=== PATIENT | female | born 1960 | race African-American/Black ===

== ENCOUNTER → 2018-01-20 | Day surgery (SDC) | payer MEDICARE, OTHER ==
[~2018-01-20] MED LIST: IV RINGERS,LACTATED 1000ML 1,000 ML IV; LIDOCAINE 1% PF 2 ML VIAL. ID; LIDOCAINE 2% PF Vial for OR 5 ML VIAL.; MIDAZOLAM HCL/PF 2 MG/2 ML VIAL. IV; PROPOFOL 40 ML IV; fentaNYL PF VIAL 100 MCG/2 ML VIAL IV
[2018-01-20] MEDS: IV NORMAL SALINE 1000ML BAG 1,000 ML IV (14:06)
== END | disposition home or self-care (01) ==
LOC: ENDOS 13:11
DX: Z12.11 Encounter for screening for malignant neoplasm of colon (principal); K64.0 First degree hemorrhoids; D12.8 Benign neoplasm of rectum; Z91.040 Latex allergy status; Z86.73 Personal history of transient ischemic attack (TIA), and cerebral infarction without residual deficits; E78.00 Pure hypercholesterolemia, unspecified; I11.0 Hypertensive heart disease with heart failure; I50.9 Heart failure, unspecified; G47.30 Sleep apnea, unspecified; E66.9 Obesity, unspecified; M17.12 Unilateral primary osteoarthritis, left knee; Z98.890 Other specified postprocedural states; E03.9 Hypothyroidism, unspecified; Z87.891 Personal history of nicotine dependence; Z88.8 Allergy status to other drugs, medicaments and biological substances
CPT/HCPCS: 45380; 45385; 88305; J2704

== ENCOUNTER 2019-09-23 17:10 | Inpatient (IN) | payer MEDICARE, OTHER ==
[~2019-09-23] VITALS: Ht 160 cm; Wt 124.8 kg
[~2019-09-23 17:10] MED LIST changes: +AMLO10TA8 PO; +ASPI325T8 PO; +CARV12.5 PO; +CARV25TA PO; +CINA30TA2 PO; +DARB100D SQ; +DOXA2TAB2 PO; +FOLI0.8T3 PO; +FURO-68 PO; +HYDR-2678 PO; +HYDR-2868 PO; +HYDR-2869 PO; -IV RINGERS,LACTATED 1000ML 1,000 ML IV; -LIDOCAINE 1% PF 2 ML VIAL. ID; -LIDOCAINE 2% PF Vial for OR 5 ML VIAL.; +LOSA-73 PO; +LOSA100T2 PO; -MIDAZOLAM HCL/PF 2 MG/2 ML VIAL. IV; -PROPOFOL 40 ML IV; -fentaNYL PF VIAL 100 MCG/2 ML VIAL IV
[2019-09-23] MEDS ORDERED: hydrALAZINE 20 MG/ML VIAL. IVP ONE ×2 (18:00→19:15)
--- NOTE | 2019-09-23 18:04 | PHYS DOC ---
Past Medical History Past Medical History: Hypertension, Renal Disease, Renal Failure, Stroke Additional Past Medical Histor: stroke 2012, 2019 Past Surgical History: No Surgical History Alcohol Use: Occasionally Drug Use: None Adult General Chief Complaint Chief Complaint: DIALYSIS PROBLEM HPI HPI Patient is a 59 year old [female] who presents with [fatigue, malaise. Patient reports she has not been to dialysis approximately 1.5 weeks, missing 5 treatments at this time. States that she just did not have the energy to go. States she know she needs to her dialysis, however she just could not. Reports she has felt some fatigue, aching since that time. Does report she is still producing urine, also reports she no she has high blood pressure, does take hydralazine he stay for blood pressure. However has not taken any doses this evening. Denies dizziness. Denies nausea, vomiting, diarrhea. Denies abdominal pain. States she feels fine, not having any discomfort, but does continue to feel malaise ] Review of Systems Review of Systems Constitutional: Denies fever or chills reports generalized malaise [] Eyes: Denies change in visual acuity, redness, or eye pain [] HENT: Denies nasal congestion or sore throat [] Respiratory: Denies cough or shortness of breath [] Cardiovascular: No additional information not addressed in HPI [] GI: Denies abdominal pain, nausea, vomiting, bloody stools or diarrhea [] : Denies dysuria or hematuria reports she still produces urine, although a small amount[] Musculoskeletal: Denies back pain or joint pain [] Integument: Denies rash or skin lesions [] Neurologic: Denies headache, focal weakness or sensory changes [] Endocrine: Denies polyuria or polydipsia [] All other systems were reviewed and found to be within normal limits, except as documented in this note. Current Medications Current Medications Current Medications Medications (Trade) Dose Ordered Sig/Marco A Start Time Stop Time Status Last Admin Dose Admin Amlodipine Besylate (Norvasc) 10 mg DAILY 09/23/19 19:15 UNV Hydralazine HCl (Apresoline Inj) 10 mg 1X ONCE 09/23/19 18:00 09/23/19 18:06 DC 09/23/19 18:17 10 MG Hydralazine HCl (Apresoline) 50 mg TID 09/23/19 21:00 UNV Non-Formulary Medication (Carvedilol (Coreg)) 1 tab BID 09/23/19 21:00 UNV Non-Formulary Medication (Doxazosin Mesylate ) 1 tab DAILY 09/24/19 09:00 UNV Sodium Polystyrene Sulfonate (Kayexalate) 15 gm 1X ONCE 09/23/19 19:00 09/23/19 19:01 DC 09/23/19 19:05 15 GM Allergies Allergies Allergies Coded Allergies Type Severity Reaction Last Updated Verified latex Allergy Severe Rash 01/20/18 Yes iodine Adverse Reaction Intermediate 01/20/18 Yes Physical Exam Physical Exam Constitutional: Well developed, well nourished, no acute distress, non-toxic appearance. Grossly obese [] HENT: Normocephalic, atraumatic, bilateral external ears normal, oropharynx [address], no oral exudates, nose normal. [] Eyes: PERRLA, EOMI, conjunctiva normal, no discharge. [] Neck: Normal range of motion, no tenderness, supple, no stridor. [] Cardiovascular:Heart rate regular rhythm, no murmur [] Lungs & Thorax: Bilateral breath sounds clear to auscultation [] Abdomen: Bowel sounds normal, soft, no tenderness, no masses, no pulsatile masses. [] Skin: Warm, dry, no erythema, no rash. [] Back: No tenderness, no CVA tenderness. [] Extremities: No tenderness, no cyanosis, no clubbing, ROM intact, no edema. [] Neurologic: Alert and oriented X 3, normal motor function, normal sensory function, no focal deficits noted. [] Psychologic: Affect normal, judgement normal, mood normal. [] Current Patient Data Vital Signs Vital Signs Date Time Temp Pulse Resp B/P (MAP) Pulse Ox O2 Delivery O2 Flow Rate FiO2 09/23/19 18:54 73 18 185/79 (114) 95 Room Air 09/23/19 17:39 97.6 97.6 Lab Values Laboratory Tests Test 09/23/19 17:50 White Blood Count 4.3 x10^3/uL (4.0-11.0) Red Blood Count 2.78 x10^6/uL (3.50-5.40) L Hemoglobin 9.1 g/dL (12.0-15.5) L Hematocrit 27.5 % (36.0-47.0) L Mean Corpuscular Volume 99 fL (79-100) Mean Corpuscular Hemoglobin 33 pg (25-35) Mean Corpuscular Hemoglobin Concent 33 g/dL (31-37) Red Cell Distribution Width 17.8 % (11.5-14.5) H Platelet Count 161 x10^3/uL (140-400) Neutrophils (%) (Auto) 83 % (31-73) H Lymphocytes (%) (Auto) 11 % (24-48) L Monocytes (%) (Auto) 4 % (0-9) Eosinophils (%) (Auto) 1 % (0-3) Basophils (%) (Auto) 1 % (0-3) Neutrophils # (Auto) 3.6 x10^3/uL (1.8-7.7) Lymphocytes # (Auto) 0.5 x10^3/uL (1.0-4.8) L Monocytes # (Auto) 0.2 x10^3/uL (0.0-1.1) Eosinophils # (Auto) 0.0 x10^3/uL (0.0-0.7) Basophils # (Auto) 0.0 x10^3/uL (0.0-0.2) Sodium Level 143 mmol/L (136-145) Potassium Level 5.8 mmol/L (3.5-5.1) H Chloride Level 108 mmol/L (98-107) H Carbon Dioxide Level 21 mmol/L (21-32) Anion Gap 14 (6-14) Blood Urea Nitrogen 103 mg/dL (7-20) H Creatinine 14.6 mg/dL (0.6-1.0) H Estimated GFR (Cockcroft-Gault) 3.1 BUN/Creatinine Ratio 7 (6-20) Glucose Level 92 mg/dL (70-99) Calcium Level 9.2 mg/dL (8.5-10.1) Magnesium Level 2.0 mg/dL (1.8-2.4) Total Bilirubin 0.4 mg/dL (0.2-1.0) Aspartate Amino Transferase (AST) 13 U/L (15-37) L Alanine Aminotransferase (ALT) 15 U/L (14-59) Alkaline Phosphatase 73 U/L (46-116) Troponin I Quantitative < 0.017 ng/mL (0.000-0.055) Total Protein 7.4 g/dL (6.4-8.2) Albumin 3.1 g/dL (3.4-5.0) L Albumin/Globulin Ratio 0.7 (1.0-1.7) L Laboratory Tests 09/23/19 17:50 Laboratory Tests 09/23/19 17:50 EKG EKG ![id number] changes. Sinus rhythm. occasional PVC[] Radiology/Procedures Radiology/Procedures [] Course & Med Decision Making Course & Med Decision Making Pertinent Labs and Imaging studies reviewed. (See chart for details) []@[address] Dickerson, Nephrology, recommends kayexalate and patient to be dialyzed tomorrow. Recommends admission. @184 - Repeat blood pressure following hydralazine Patient continues resting in room at this time. @[address] Parry.agrees to admission. Will continue Hydralazine for blood pressure. Dragon Disclaimer Dragon Disclaimer This electronic medical record was generated, in whole or in part, using a voice recognition dictation system. Departure Departure Impression: Primary Impression: Hyperkalemia Additional Impression: ESRD (end stage renal disease) Disposition: ADMITTED INPATIENT Admitting Physician: TRUDY Condition: STABLE Referrals: NEGRITA RODRIGUEZ (PCP) Problem Qualifiers STEPHON DODGE APRN Sep 23, 2019 18:04
[2019-09-23 18:07] LABS: BASO % 1 % (0-3); EOS % 1 % (0-3); HEMATOCRIT 27.5 % (36.0-47.0); HEMOGLOBIN 9.1 g/dL (12.0-15.5); LYMPH # 0.5 x10^3/uL (1.0-4.8); LYMPH % 11 % (24-48); MEAN CORPUSCULAR HEMOGLOBIN 33 pg (25-35); MEAN CORPUSCULAR HGB CONC 33 g/dL (31-37); MEAN CORPUSCULAR VOLUME 99 fL (79-100); MONO # 0.2 x10^3/uL (0.0-1.1); MONO % 4 % (0-9); NEUT # 3.6 x10^3/uL (1.8-7.7); NEUT % 83 % (31-73); PLATELET COUNT 161 x10^3/uL (140-400); RED BLOOD COUNT 2.78 x10^6/uL (3.50-5.40); RED CELL DISTRIBUTION WIDTH 17.8 % (11.5-14.5); WHITE BLOOD COUNT 4.3 x10^3/uL (4.0-11.0)
[2019-09-23 18:20] LABS: CALCIUM 9.2 mg/dL (8.5-10.1); CREATININE 14.6 mg/dL (0.6-1.0); GFR 3.1; POTASSIUM 5.8 mmol/L (3.5-5.1)
[2019-09-23 18:26] LABS: ALBUMIN 3.1 g/dL (3.4-5.0); ALBUMIN/GLOBULIN RATIO 0.7 (1.0-1.7); TOTAL BILIRUBIN 0.4 mg/dL (0.2-1.0); TOTAL PROTEIN 7.4 g/dL (6.4-8.2)
[2019-09-23] MEDS ORDERED: SODIUM POLYSTYRENE SULFON/SORB 15 GM/60 ML ORAL.SUSP PO ONE (19:00)
[2019-09-23] MEDS ORDERED: CARVEDILOL 12.5 MG TABLET. PO SCH (19:11)
[2019-09-23] MEDS: amLODIPine BESYLATE 10 MG TABLET PO SCH (19:26)
[2019-09-23 19:50] VITALS: BP 209/82
[2019-09-23 22:45] VITALS: BP 209/95
[2019-09-23] MEDS: hydrALAZINE 20 MG/ML VIAL. IVP PRN (22:49)
[2019-09-23] MEDS ORDERED: TELM80TA PO (23:03)
[2019-09-23] MEDS ORDERED: ATOR40TA59 PO (23:03)
[2019-09-23] MEDS ORDERED: SEVE800T9 PO (23:03)
[2019-09-23 23:54] VITALS: BP 184/79
[2019-09-24 03:30] VITALS: BP 173/79
[2019-09-24 03:48] LABS: BILIRUBIN,URINE NEGATIVE (NEG); CLARITY,URINE CLEAR; COLOR,URINE YELLOW; NITRITE,URINE NEGATIVE (NEG); PROTEIN,URINE 100 mg/dL (NEG-TRACE); UROBILINOGEN,URINE 0.2 mg/dL (0.2 mg/dL)
[2019-09-24 04:04] LABS: AMORPHOUS SEDIMENT,UR PRESENT /HPF; SQUAMOUS EPITHELIAL CELL,UR MANY /LPF
[2019-09-24 04:05] LABS: BACTERIA,URINE 0 /HPF (0-FEW); RBC,URINE 0 /HPF (0-2); WBC,URINE 0 /HPF (0-4)
[2019-09-24 04:50] LABS: BASO % 1 % (0-3); EOS # 0.1 x10^3/uL (0.0-0.7); EOS % 1 % (0-3); HEMATOCRIT 26.3 % (36.0-47.0); HEMOGLOBIN 8.7 g/dL (12.0-15.5); LYMPH # 0.6 x10^3/uL (1.0-4.8); LYMPH % 15 % (24-48); MEAN CORPUSCULAR HEMOGLOBIN 33 pg (25-35); MEAN CORPUSCULAR HGB CONC 33 g/dL (31-37); MEAN CORPUSCULAR VOLUME 100 fL (79-100); MONO # 0.2 x10^3/uL (0.0-1.1); MONO % 4 % (0-9); NEUT # 3.5 x10^3/uL (1.8-7.7); NEUT % 79 % (31-73); PLATELET COUNT 156 x10^3/uL (140-400); RED BLOOD COUNT 2.64 x10^6/uL (3.50-5.40); RED CELL DISTRIBUTION WIDTH 17.6 % (11.5-14.5); WHITE BLOOD COUNT 4.4 x10^3/uL (4.0-11.0)
[2019-09-24 05:08] LABS: CALCIUM 9.3 mg/dL (8.5-10.1); CREATININE 14.6 mg/dL (0.6-1.0); GFR 3.1; POTASSIUM 5.3 mmol/L (3.5-5.1)
[2019-09-24 07:34] VITALS: BP 196/87
[2019-09-24] MEDS: hydrALAZINE 20 MG/ML VIAL. IVP PRN (08:07)
[2019-09-24] MEDS ORDERED: DOXAZOSIN MESYLATE 1 MG TABLET. PO SCH (09:00)
[2019-09-24] MEDS ORDERED: IV NORMAL SALINE 1000ML BAG 1,000 ML IV PRN (09:09)
[2019-09-24] MEDS ORDERED: DIALYSIS PATIENT. MC PRN ×2 (09:15)
[2019-09-24] MEDS ORDERED: ALBUMIN HUMAN 25% 200 ML IV PRN (09:15)
--- NOTE | 2019-09-24 09:57 | PDOC1 ---
History and Physical Date of Admission Date of Admission DATE: 09/24/19 TIME: 09:56 Identification/Chief Complaint Chief Complaint SEEN IN ER WITH 59 year old [female] [fatigue, malaise. Patient reports she has not been to dialysis approximately 1.5 weeks, missing 5 treatments at this time. States that she just did not have the energy to go. States she know she needs to her dialysis, however she just could not. // she has felt some fatigue, aching since that time. Does report she is still producing urine, also reports she she has high blood pressure, does take hydralazine for blood pressure.,, However has not taken any yesterday Past Medical History Past Medical History Past Medical History Past Medical History Past Medical History: Hypertension, Renal Disease, Renal Failure, Stroke Additional Past Medical Histor: stroke 2012, 2018 Past Surgical History: No Surgical History Alcohol Use: Occasionally Drug Use: None PAST MEDICAL HISTORY: Chronic kidney disease, hypertension, obesity, anemia, hyperparathyroidism, untreated hepatitis C and treated hepatitis B. SOCIAL HISTORY: Nonsmoker. No alcohol or illicit drug use. family hx obesity Cardiovascular: HTN, Hyperlipidemia Pulmonary: Other GI: No pertinent hx Heme/Onc: Anemia NOS Hepatobiliary: No pertinent hx Psych: No pertinent hx Infectious disease: No pertinent hx Endocrine: Hyperparathyroidism Past Surgical History Past Surgical History: No pertinent history Family History Family History: Hypertension Social History Smoke: No ALCOHOL: none Drugs: None Current Problem List Problem List Problems Medical Problems: (1) ESRD (end stage renal disease) Status: Acute (2) Hyperkalemia Status: Acute Current Medications Current Medications Current Medications Hydralazine HCl (Apresoline Inj) 10 mg 1X ONCE IVP Last administered on 09/23/19at 18:17; Start 09/23/19 at 18:00; Stop 09/23/19 at 18:06; Status DC Sodium Polystyrene Sulfonate (Kayexalate) 15 gm 1X ONCE PO Last administered on 09/23/19at 19:05; Start 09/23/19 at 19:00; Stop 09/23/19 at 19:01; Status DC Amlodipine Besylate (Norvasc) 10 mg DAILY PO Last administered on 09/23/19at 19:26; Start 09/23/19 at 19:15 Hydralazine HCl (Apresoline) 50 mg TID PO ; Start 09/23/19 at 19:10; Stop 09/23/19 at 19:12; Status DC Carvedilol (Coreg) 25 mg BIDWMEALS PO ; Start 09/23/19 at 19:11; Stop 09/23/19 at 19:12; Status DC Doxazosin Mesylate (Cardura) 2 mg DAILY PO ; Start 09/24/19 at 09:00 Hydralazine HCl (Apresoline) 50 mg TID PO Last administered on 09/23/19at 21:07; Start 09/23/19 at 21:00 Carvedilol (Coreg) 25 mg BIDWMEALS PO ; Start 09/24/19 at 08:00 Hydralazine HCl (Apresoline Inj) 10 mg PRN Q4HRS ONCE IVP ; Start 09/23/19 at 19:15; Stop 09/23/19 at 19:23; Status DC Hydralazine HCl (Apresoline Inj) 10 mg PRN Q4HRS PRN IVP HYPERTENSION Last administered on 09/24/19at 08:07; Start 09/23/19 at 19:30 Sodium Chloride 1,000 ml @ 1,000 mls/hr Q1H PRN IV hypotension; Start 09/24/19 at 09:09; Stop 09/24/19 at 15:08 Albumin Human 200 ml @ 200 mls/hr 1X PRN PRN IV Hypotension; Start 09/24/19 at 09:15; Stop 09/24/19 at 15:14 Info (PHARMACY MONITORING -- do not chart) 1 each PRN DAILY PRN MC SEE COMMENTS; Start 09/24/19 at 09:15 Info (PHARMACY MONITORING -- do not chart) 1 each PRN DAILY PRN MC SEE COMMENTS; Start 09/24/19 at 09:15; Status UNV Active Scripts Active Reported Renvela (Sevelamer Carbonate) 800 Mg Tablet 800 Mg PO TIDWMEALS Micardis (Telmisartan) 80 Mg Tablet 1 Tab PO DAILY Atorvastatin Calcium 40 Mg Tablet 40 Mg PO HS Coreg (Carvedilol) 25 Mg Tablet 1 Tab PO BID Hydralazine Hcl 50 Mg Tablet 1 Tab PO TID Amlodipine Besylate 10 Mg Tablet 1 Tab PO DAILY Doxazosin Mesylate 2 Mg Tablet 1 Tab PO QHS Sensipar (Cinacalcet Hcl) 30 Mg Tablet 1 Tab PO QMWF Allergies Allergies: Coded Allergies: latex (Verified Allergy, Severe, Rash, 01/20/18) iodine (Verified Adverse Reaction, Intermediate, 01/20/18) ROS Review of System Review of Systems Review of Systems Constitutional: Denies fever or chills reports generalized malaise [] Eyes: Denies change in visual acuity, redness, or eye pain [] HENT: Denies nasal congestion or sore throat [] Respiratory: Denies cough or shortness of breath [] Cardiovascular: No additional information not addressed in HPI [] GI: Denies abdominal pain, nausea, vomiting, bloody stools or diarrhea [] : Denies dysuria or hematuria reports she still produces urine, although a small amount[] Musculoskeletal: Denies back pain or joint pain [] Integument: Denies rash or skin lesions [] Neurologic: Denies headache, focal weakness or sensory changes [] Endocrine: Denies polyuria or polydipsia [] 14 PT systems were reviewed and found to be within normal limits, except as documented Physical Exam Physical Exam Physical Exam Physical Exam Constitutional: Well developed, well nourished, no acute distress, non-toxic appearance. Grossly obese [] HENT: Normocephalic, atraumatic, bilateral external ears normal, oropharynx moist, no oral exudates, nose normal. [] Eyes: PERRLA, EOMI, conjunctiva normal, no discharge. [] Neck: Normal range of motion, no tenderness, supple, no stridor. [] Cardiovascular:Heart rate regular rhythm, no murmur [] Lungs & Thorax: Bilateral breath sounds clear to auscultation [] Abdomen: Bowel sounds normal, soft, no tenderness, no masses, no pulsatile masses. [] Skin: Warm, dry, no erythema, no rash. [] Back: No tenderness, no CVA tenderness. [] Extremities: No tenderness, no cyanosis, no clubbing, ROM intact, no edema. [] Neurologic: Alert and oriented X 3, normal motor function, normal sensory function, no focal deficits noted. [] Psychologic: Affect normal, judgement normal, mood normal. [] General: Alert, Oriented X3, Cooperative, No acute distress Breasts: Not examined Abdomen: Soft Rectal Exam: not examined Extremities: No cyanosis Neuro: Normal speech, Cranial nerves 3-12 NL Psych/Mental Status: Mental status NL, Mood NL Vitals Vitals Vital Signs Date Time Temp Pulse Resp B/P (MAP) Pulse Ox O2 Delivery O2 Flow Rate FiO2 09/24/19 08:07 75 196/87 09/24/19 08:00 Room Air 09/24/19 07:34 97.8 94 97.8 09/24/19 03:30 18 Labs Labs Laboratory Tests Test 09/23/19 17:50 09/24/19 03:30 09/24/19 04:30 White Blood Count 4.3 x10^3/uL (4.0-11.0) 4.4 x10^3/uL (4.0-11.0) Red Blood Count 2.78 x10^6/uL (3.50-5.40) 2.64 x10^6/uL (3.50-5.40) Hemoglobin 9.1 g/dL (12.0-15.5) 8.7 g/dL (12.0-15.5) Hematocrit 27.5 % (36.0-47.0) 26.3 % (36.0-47.0) Mean Corpuscular Volume 99 fL (79-100) 100 fL (79-100) Mean Corpuscular Hemoglobin 33 pg (25-35) 33 pg (25-35) Mean Corpuscular Hemoglobin Concent 33 g/dL (31-37) 33 g/dL (31-37) Red Cell Distribution Width 17.8 % (11.5-14.5) 17.6 % (11.5-14.5) Platelet Count 161 x10^3/uL (140-400) 156 x10^3/uL (140-400) Neutrophils (%) (Auto) 83 % (31-73) 79 % (31-73) Lymphocytes (%) (Auto) 11 % (24-48) 15 % (24-48) Monocytes (%) (Auto) 4 % (0-9) 4 % (0-9) Eosinophils (%) (Auto) 1 % (0-3) 1 % (0-3) Basophils (%) (Auto) 1 % (0-3) 1 % (0-3) Neutrophils # (Auto) 3.6 x10^3/uL (1.8-7.7) 3.5 x10^3/uL (1.8-7.7) Lymphocytes # (Auto) 0.5 x10^3/uL (1.0-4.8) 0.6 x10^3/uL (1.0-4.8) Monocytes # (Auto) 0.2 x10^3/uL (0.0-1.1) 0.2 x10^3/uL (0.0-1.1) Eosinophils # (Auto) 0.0 x10^3/uL (0.0-0.7) 0.1 x10^3/uL (0.0-0.7) Basophils # (Auto) 0.0 x10^3/uL (0.0-0.2) 0.0 x10^3/uL (0.0-0.2) Sodium Level 143 mmol/L (136-145) 141 mmol/L (136-145) Potassium Level 5.8 mmol/L (3.5-5.1) 5.3 mmol/L (3.5-5.1) Chloride Level 108 mmol/L (98-107) 107 mmol/L (98-107) Carbon Dioxide Level 21 mmol/L (21-32) 19 mmol/L (21-32) Anion Gap 14 (6-14) 15 (6-14) Blood Urea Nitrogen 103 mg/dL (7-20) 102 mg/dL (7-20) Creatinine 14.6 mg/dL (0.6-1.0) 14.6 mg/dL (0.6-1.0) Estimated GFR (Cockcroft-Gault) 3.1 3.1 BUN/Creatinine Ratio 7 (6-20) Glucose Level 92 mg/dL (70-99) 86 mg/dL (70-99) Calcium Level 9.2 mg/dL (8.5-10.1) 9.3 mg/dL (8.5-10.1) Magnesium Level 2.0 mg/dL (1.8-2.4) Total Bilirubin 0.4 mg/dL (0.2-1.0) Aspartate Amino Transf (AST/SGOT) 13 U/L (15-37) Alanine Aminotransferase (ALT/SGPT) 15 U/L (14-59) Alkaline Phosphatase 73 U/L (46-116) Troponin I Quantitative < 0.017 ng/mL (0.000-0.055) Total Protein 7.4 g/dL (6.4-8.2) Albumin 3.1 g/dL (3.4-5.0) Albumin/Globulin Ratio 0.7 (1.0-1.7) Urine Collection Type Unknown Urine Color Yellow Urine Clarity Clear Urine pH 7.0 Urine Specific [place] 1.015 Urine Protein 100 mg/dL (NEG-TRACE) Urine Glucose (UA) Negative mg/dL (NEG) Urine Ketones (Stick) Negative mg/dL (NEG) Urine Blood Negative (NEG) Urine Nitrite Negative (NEG) Urine Bilirubin Negative (NEG) Urine Urobilinogen Dipstick 0.2 mg/dL (0.2 mg/dL) Urine Leukocyte Esterase Negative (NEG) Urine RBC 0 /HPF (0-2) Urine WBC 0 /HPF (0-4) Urine Squamous Epithelial Cells Many /LPF Urine Amorphous Sediment Present /HPF Urine Bacteria 0 /HPF (0-FEW) Urine Mucus Slight /LPF Hepatitis B Surface Antigen Nonreactive (Nonreactive) Laboratory Tests Test 09/23/19 17:50 09/24/19 03:30 09/24/19 04:30 White Blood Count 4.3 x10^3/uL (4.0-11.0) 4.4 x10^3/uL (4.0-11.0) Red Blood Count 2.78 x10^6/uL (3.50-5.40) 2.64 x10^6/uL (3.50-5.40) Hemoglobin 9.1 g/dL (12.0-15.5) 8.7 g/dL (12.0-15.5) Hematocrit 27.5 % (36.0-47.0) 26.3 % (36.0-47.0) Mean Corpuscular Volume 99 fL (79-100) 100 fL (79-100) Mean Corpuscular Hemoglobin 33 pg (25-35) 33 pg (25-35) Mean Corpuscular Hemoglobin Concent 33 g/dL (31-37) 33 g/dL (31-37) Red Cell Distribution Width 17.8 % (11.5-14.5) 17.6 % (11.5-14.5) Platelet Count 161 x10^3/uL (140-400) 156 x10^3/uL (140-400) Neutrophils (%) (Auto) 83 % (31-73) 79 % (31-73) Lymphocytes (%) (Auto) 11 % (24-48) 15 % (24-48) Monocytes (%) (Auto) 4 % (0-9) 4 % (0-9) Eosinophils (%) (Auto) 1 % (0-3) 1 % (0-3) Basophils (%) (Auto) 1 % (0-3) 1 % (0-3) Neutrophils # (Auto) 3.6 x10^3/uL (1.8-7.7) 3.5 x10^3/uL (1.8-7.7) Lymphocytes # (Auto) 0.5 x10^3/uL (1.0-4.8) 0.6 x10^3/uL (1.0-4.8) Monocytes # (Auto) 0.2 x10^3/uL (0.0-1.1) 0.2 x10^3/uL (0.0-1.1) Eosinophils # (Auto) 0.0 x10^3/uL (0.0-0.7) 0.1 x10^3/uL (0.0-0.7) Basophils # (Auto) 0.0 x10^3/uL (0.0-0.2) 0.0 x10^3/uL (0.0-0.2) Sodium Level 143 mmol/L (136-145) 141 mmol/L (136-145) Potassium Level 5.8 mmol/L (3.5-5.1) 5.3 mmol/L (3.5-5.1) Chloride Level 108 mmol/L (98-107) 107 mmol/L (98-107) Carbon Dioxide Level 21 mmol/L (21-32) 19 mmol/L (21-32) Anion Gap 14 (6-14) 15 (6-14) Blood Urea Nitrogen 103 mg/dL (7-20) 102 mg/dL (7-20) Creatinine 14.6 mg/dL (0.6-1.0) 14.6 mg/dL (0.6-1.0) Estimated GFR (Cockcroft-Gault) 3.1 3.1 BUN/Creatinine Ratio 7 (6-20) Glucose Level 92 mg/dL (70-99) 86 mg/dL (70-99) Calcium Level 9.2 mg/dL (8.5-10.1) 9.3 mg/dL (8.5-10.1) Magnesium Level 2.0 mg/dL (1.8-2.4) Total Bilirubin 0.4 mg/dL (0.2-1.0) Aspartate Amino Transf (AST/SGOT) 13 U/L (15-37) Alanine Aminotransferase (ALT/SGPT) 15 U/L (14-59) Alkaline Phosphatase 73 U/L (46-116) Troponin I Quantitative < 0.017 ng/mL (0.000-0.055) Total Protein 7.4 g/dL (6.4-8.2) Albumin 3.1 g/dL (3.4-5.0) Albumin/Globulin Ratio 0.7 (1.0-1.7) Urine Collection Type Unknown Urine Color Yellow Urine Clarity Clear Urine pH 7.0 Urine Specific [place] 1.015 Urine Protein 100 mg/dL (NEG-TRACE) Urine Glucose (UA) Negative mg/dL (NEG) Urine Ketones (Stick) Negative mg/dL (NEG) Urine Blood Negative (NEG) Urine Nitrite Negative (NEG) Urine Bilirubin Negative (NEG) Urine Urobilinogen Dipstick 0.2 mg/dL (0.2 mg/dL) Urine Leukocyte Esterase Negative (NEG) Urine RBC 0 /HPF (0-2) Urine WBC 0 /HPF (0-4) Urine Squamous Epithelial Cells Many /LPF Urine Amorphous Sediment Present /HPF Urine Bacteria 0 /HPF (0-FEW) Urine Mucus Slight /LPF Hepatitis B Surface Antigen Nonreactive (Nonreactive) VTE Prophylaxis Ordered VTE Prophylaxis Devices: Yes VTE Pharmacological Prophylaxi: Contraindicated Assessment/Plan Assessment/Plan Impression: Hyperkalemia EXTREME MORBID OBESITY NONCOMPLIANCE WITH DIALYSIS ESRD (end stage renal disease) DIALYSIS DEPENDENT HYPERTENSION NORMOCYTIC ANEMIA OF RENAL FAILURE ADMITTED CVC BED NEPHROLOGY CONSULT BP CONTROL 57 MIN PT EXAM, CHART REVIEW, > 50% OF TIME SPENT WITH EXAM, CHART REVIEW, PT CARE COORDINATION JOSE ANNE MD Sep 24, 2019 09:57
--- NOTE | 2019-09-24 11:17 | PDOC2 ---
CONSULT Date of Consult Date of Consult DATE: 09/24/19 TIME: 11:15 Reason for Consult Reason for Consult: ESRD. missed HD, Hyperkalemia Identification/Chief Complaint Chief Complaint None currently Source Source: Chart review, Patient History of Present Illness Reason for Visit: Patient is a 59 year old AAF ESRD on HD MWF who presented to the ER with [fatigue, malaise. She reports she has not been to dialysis approximately 1.5 weeks, missing 5 treatments at this time due to the weather In the ER she reported she missed as she just did not have the energy to go . Does report she is still producing urine,Denies dizziness. Denies nausea, vomiting, diarrhea. Denies abdominal pain. States she feels fine, not having any discomfort, but does continue to feel malaise Non compliance with BP meds ] Past Medical History Cardiovascular: HTN, Hyperlipidemia Pulmonary: Other GI: No pertinent hx Heme/Onc: Anemia NOS Hepatobiliary: No pertinent hx Psych: No pertinent hx Infectious disease: No pertinent hx Endocrine: Hyperparathyroidism Past Surgical History Past Surgical History: No pertinent history Social History ALCOHOL: none Drugs: None Current Problem List Problem List Problems Medical Problems: (1) ESRD (end stage renal disease) Status: Acute (2) Hyperkalemia Status: Acute Current Medications Current Medications Current Medications Hydralazine HCl (Apresoline Inj) 10 mg 1X ONCE IVP Last administered on 09/23/19at 18:17; Start 09/23/19 at 18:00; Stop 09/23/19 at 18:06; Status DC Sodium Polystyrene Sulfonate (Kayexalate) 15 gm 1X ONCE PO Last administered on 09/23/19at 19:05; Start 09/23/19 at 19:00; Stop 09/23/19 at 19:01; Status DC Amlodipine Besylate (Norvasc) 10 mg DAILY PO Last administered on 09/23/19at 19:26; Start 09/23/19 at 19:15 Hydralazine HCl (Apresoline) 50 mg TID PO ; Start 09/23/19 at 19:10; Stop 09/23/19 at 19:12; Status DC Carvedilol (Coreg) 25 mg BIDWMEALS PO ; Start 09/23/19 at 19:11; Stop 09/23/19 at 19:12; Status DC Doxazosin Mesylate (Cardura) 2 mg DAILY PO ; Start 09/24/19 at 09:00 Hydralazine HCl (Apresoline) 50 mg TID PO Last administered on 09/23/19at 21:07; Start 09/23/19 at 21:00 Carvedilol (Coreg) 25 mg BIDWMEALS PO ; Start 09/24/19 at 08:00 Hydralazine HCl (Apresoline Inj) 10 mg PRN Q4HRS ONCE IVP ; Start 09/23/19 at 19:15; Stop 09/23/19 at 19:23; Status DC Hydralazine HCl (Apresoline Inj) 10 mg PRN Q4HRS PRN IVP HYPERTENSION Last adm inistered on 09/24/19at 08:07; Start 09/23/19 at 19:30 Sodium Chloride 1,000 ml @ 1,000 mls/hr Q1H PRN IV hypotension; Start 09/24/19 at 09:09; Stop 09/24/19 at 15:08 Albumin Human 200 ml @ 200 mls/hr 1X PRN PRN IV Hypotension; Start 09/24/19 at 09:15; Stop 09/24/19 at 15:14 Info (PHARMACY MONITORING -- do not chart) 1 each PRN DAILY PRN MC SEE COMMENTS; Start 09/24/19 at 09:15 Info (PHARMACY MONITORING -- do not chart) 1 each PRN DAILY PRN MC SEE COMMENTS; Start 09/24/19 at 09:15; Status UNV Active Scripts Active Reported Renvela (Sevelamer Carbonate) 800 Mg Tablet 800 Mg PO TIDWMEALS Micardis (Telmisartan) 80 Mg Tablet 1 Tab PO DAILY Atorvastatin Calcium 40 Mg Tablet 40 Mg PO HS Coreg (Carvedilol) 25 Mg Tablet 1 Tab PO BID Hydralazine Hcl 50 Mg Tablet 1 Tab PO TID Amlodipine Besylate 10 Mg Tablet 1 Tab PO DAILY Doxazosin Mesylate 2 Mg Tablet 1 Tab PO QHS Sensipar (Cinacalcet Hcl) 30 Mg Tablet 1 Tab PO QMWF Allergies Allergies: Coded Allergies: latex (Verified Allergy, Severe, Rash, 01/20/18) iodine (Verified Adverse Reaction, Intermediate, 01/20/18) ROS Review of System As per HPI Physical Exam Physical Exam GEN: NAD HEEN: OM moist NECK:supple CVS: RRR RESP: CTA, Non labored GI: NT, Obese : No ] CVA tenderness, No gaytan NEURO- Grossly normal DERM- NO rash Vital Signs Vital Signs Date Time Temp Pulse Resp B/P (MAP) Pulse Ox O2 Delivery O2 Flow Rate FiO2 09/24/19 08:07 75 196/87 09/24/19 08:00 Room Air 09/24/19 07:34 97.8 94 97.8 09/24/19 03:30 18 Assessment & Plan ESRD - On HD MWF, miised 5 treatments Presented with very high BUN/Cr and K Dialyzed Today, seen on HD, tolerating well, continue as ordered , Maciel Hernandez HD again tomoorow per her regular schedule Hyperkalemia -Dialysis HTN- Missed [employer] and Non compliance with antihypertensives Start Home antihypertensives Anemia- KARENA per protocol for goal Hgb 10-11 Labs Labs Laboratory Tests Test 09/23/19 17:50 09/24/19 03:30 09/24/19 04:30 White Blood Count 4.3 x10^3/uL (4.0-11.0) 4.4 x10^3/uL (4.0-11.0) Red Blood Count 2.78 x10^6/uL (3.50-5.40) 2.64 x10^6/uL (3.50-5.40) Hemoglobin 9.1 g/dL (12.0-15.5) 8.7 g/dL (12.0-15.5) Hematocrit 27.5 % (36.0-47.0) 26.3 % (36.0-47.0) Mean Corpuscular Volume 99 fL (79-100) 100 fL (79-100) Mean Corpuscular Hemoglobin 33 pg (25-35) 33 pg (25-35) Mean Corpuscular Hemoglobin Concent 33 g/dL (31-37) 33 g/dL (31-37) Red Cell Distribution Width 17.8 % (11.5-14.5) 17.6 % (11.5-14.5) Platelet Count 161 x10^3/uL (140-400) 156 x10^3/uL (140-400) Neutrophils (%) (Auto) 83 % (31-73) 79 % (31-73) Lymphocytes (%) (Auto) 11 % (24-48) 15 % (24-48) Monocytes (%) (Auto) 4 % (0-9) 4 % (0-9) Eosinophils (%) (Auto) 1 % (0-3) 1 % (0-3) Basophils (%) (Auto) 1 % (0-3) 1 % (0-3) Neutrophils # (Auto) 3.6 x10^3/uL (1.8-7.7) 3.5 x10^3/uL (1.8-7.7) Lymphocytes # (Auto) 0.5 x10^3/uL (1.0-4.8) 0.6 x10^3/uL (1.0-4.8) Monocytes # (Auto) 0.2 x10^3/uL (0.0-1.1) 0.2 x10^3/uL (0.0-1.1) Eosinophils # (Auto) 0.0 x10^3/uL (0.0-0.7) 0.1 x10^3/uL (0.0-0.7) Basophils # (Auto) 0.0 x10^3/uL (0.0-0.2) 0.0 x10^3/uL (0.0-0.2) Sodium Level 143 mmol/L (136-145) 141 mmol/L (136-145) Potassium Level 5.8 mmol/L (3.5-5.1) 5.3 mmol/L (3.5-5.1) Chloride Level 108 mmol/L (98-107) 107 mmol/L (98-107) Carbon Dioxide Level 21 mmol/L (21-32) 19 mmol/L (21-32) Anion Gap 14 (6-14) 15 (6-14) Blood Urea Nitrogen 103 mg/dL (7-20) 102 mg/dL (7-20) Creatinine 14.6 mg/dL (0.6-1.0) 14.6 mg/dL (0.6-1.0) Estimated GFR (Cockcroft-Gault) 3.1 3.1 BUN/Creatinine Ratio 7 (6-20) Glucose Level 92 mg/dL (70-99) 86 mg/dL (70-99) Calcium Level 9.2 mg/dL (8.5-10.1) 9.3 mg/dL (8.5-10.1) Magnesium Level 2.0 mg/dL (1.8-2.4) Total Bilirubin 0.4 mg/dL (0.2-1.0) Aspartate Amino Transf (AST/SGOT) 13 U/L (15-37) Alanine Aminotransferase (ALT/SGPT) 15 U/L (14-59) Alkaline Phosphatase 73 U/L (46-116) Troponin I Quantitative < 0.017 ng/mL (0.000-0.055) Total Protein 7.4 g/dL (6.4-8.2) Albumin 3.1 g/dL (3.4-5.0) Albumin/Globulin Ratio 0.7 (1.0-1.7) Urine Collection Type Unknown Urine Color Yellow Urine Clarity Clear Urine pH 7.0 Urine Specific [place] 1.015 Urine Protein 100 mg/dL (NEG-TRACE) Urine Glucose (UA) Negative mg/dL (NEG) Urine Ketones (Stick) Negative mg/dL (NEG) Urine Blood Negative (NEG) Urine Nitrite Negative (NEG) Urine Bilirubin Negative (NEG) Urine Urobilinogen Dipstick 0.2 mg/dL (0.2 mg/dL) Urine Leukocyte Esterase Negative (NEG) Urine RBC 0 /HPF (0-2) Urine WBC 0 /HPF (0-4) Urine Squamous Epithelial Cells Many /LPF Urine Amorphous Sediment Present /HPF Urine Bacteria 0 /HPF (0-FEW) Urine Mucus Slight /LPF Hepatitis B Surface Antigen Nonreactive (Nonreactive) Laboratory Tests Test 09/23/19 17:50 09/24/19 03:30 09/24/19 04:30 White Blood Count 4.3 x10^3/uL (4.0-11.0) 4.4 x10^3/uL (4.0-11.0) Red Blood Count 2.78 x10^6/uL (3.50-5.40) 2.64 x10^6/uL (3.50-5.40) Hemoglobin 9.1 g/dL (12.0-15.5) 8.7 g/dL (12.0-15.5) Hematocrit 27.5 % (36.0-47.0) 26.3 % (36.0-47.0) Mean Corpuscular Volume 99 fL (79-100) 100 fL (79-100) Mean Corpuscular Hemoglobin 33 pg (25-35) 33 pg (25-35) Mean Corpuscular Hemoglobin Concent 33 g/dL (31-37) 33 g/dL (31-37) Red Cell Distribution Width 17.8 % (11.5-14.5) 17.6 % (11.5-14.5) Platelet Count 161 x10^3/uL (140-400) 156 x10^3/uL (140-400) Neutrophils (%) (Auto) 83 % (31-73) 79 % (31-73) Lymphocytes (%) (Auto) 11 % (24-48) 15 % (24-48) Monocytes (%) (Auto) 4 % (0-9) 4 % (0-9) Eosinophils (%) (Auto) 1 % (0-3) 1 % (0-3) Basophils (%) (Auto) 1 % (0-3) 1 % (0-3) Neutrophils # (Auto) 3.6 x10^3/uL (1.8-7.7) 3.5 x10^3/uL (1.8-7.7) Lymphocytes # (Auto) 0.5 x10^3/uL (1.0-4.8) 0.6 x10^3/uL (1.0-4.8) Monocytes # (Auto) 0.2 x10^3/uL (0.0-1.1) 0.2 x10^3/uL (0.0-1.1) Eosinophils # (Auto) 0.0 x10^3/uL (0.0-0.7) 0.1 x10^3/uL (0.0-0.7) Basophils # (Auto) 0.0 x10^3/uL (0.0-0.2) 0.0 x10^3/uL (0.0-0.2) Sodium Level 143 mmol/L (136-145) 141 mmol/L (136-145) Potassium Level 5.8 mmol/L (3.5-5.1) 5.3 mmol/L (3.5-5.1) Chloride Level 108 mmol/L (98-107) 107 mmol/L (98-107) Carbon Dioxide Level 21 mmol/L (21-32) 19 mmol/L (21-32) Anion Gap 14 (6-14) 15 (6-14) Blood Urea Nitrogen 103 mg/dL (7-20) 102 mg/dL (7-20) Creatinine 14.6 mg/dL (0.6-1.0) 14.6 mg/dL (0.6-1.0) Estimated GFR (Cockcroft-Gault) 3.1 3.1 BUN/Creatinine Ratio 7 (6-20) Glucose Level 92 mg/dL (70-99) 86 mg/dL (70-99) Calcium Level 9.2 mg/dL (8.5-10.1) 9.3 mg/dL (8.5-10.1) Magnesium Level 2.0 mg/dL (1.8-2.4) Total Bilirubin 0.4 mg/dL (0.2-1.0) Aspartate Amino Transf (AST/SGOT) 13 U/L (15-37) Alanine Aminotransferase (ALT/SGPT) 15 U/L (14-59) Alkaline Phosphatase 73 U/L (46-116) Troponin I Quantitative < 0.017 ng/mL (0.000-0.055) Total Protein 7.4 g/dL (6.4-8.2) Albumin 3.1 g/dL (3.4-5.0) Albumin/Globulin Ratio 0.7 (1.0-1.7) Urine Collection Type Unknown Urine Color Yellow Urine Clarity Clear Urine pH 7.0 Urine Specific [place] 1.015 Urine Protein 100 mg/dL (NEG-TRACE) Urine Glucose (UA) Negative mg/dL (NEG) Urine Ketones (Stick) Negative mg/dL (NEG) Urine Blood Negative (NEG) Urine Nitrite Negative (NEG) Urine Bilirubin Negative (NEG) Urine Urobilinogen Dipstick 0.2 mg/dL (0.2 mg/dL) Urine Leukocyte Esterase Negative (NEG) Urine RBC 0 /HPF (0-2) Urine WBC 0 /HPF (0-4) Urine Squamous Epithelial Cells Many /LPF Urine Amorphous Sediment Present /HPF Urine Bacteria 0 /HPF (0-FEW) Urine Mucus Slight /LPF Hepatitis B Surface Antigen Nonreactive (Nonreactive) Review All relevant outside records, renal labs, imaging studies, telemetry/EKG's were reviewed. VY MCKINNON MD Sep 24, 2019 11:17
[2019-09-24] MEDS ORDERED: cloNIDine HCL 0.1 MG TABLET PO PRN (12:45)
[2019-09-24] MEDS ORDERED: ACETAMINOPHEN 325 MG TABLET. PO PRN (12:45)
[2019-09-24] MEDS ORDERED: 0.9 % SODIUM CHLORIDE 10 ML DISP.SYRIN. IV PRN (12:45)
[2019-09-24] MEDS ORDERED: guaiFENesin ORAL 200 MG/10 ML LIQUID. PO PRN (12:45)
[2019-09-24] MEDS ORDERED: ALBUTEROL SULFATE 2.5 MG/3 ML NEBU. NEB PRN (12:45)
[2019-09-24] MEDS ORDERED: ONDANSETRON PF 4 MG/2 ML VIAL. IV PRN (12:45)
[2019-09-24] MEDS ORDERED: DOCUSATE SODIUM 100 MG CAPSULE. PO PRN (12:45)
[2019-09-24] MEDS: amLODIPine BESYLATE 10 MG TABLET PO SCH (14:03)
[2019-09-24] MEDS: CARVEDILOL 12.5 MG TABLET. PO SCH ×2 (14:03→17:43)
[2019-09-24] MEDS: HEPARIN for SUB-Q USE 5,000 UNIT/ML VIAL. SQ SCH ×2 (14:13→20:43)
[2019-09-24 15:18] VITALS: BP_SYST 161; BP_SYST 178; BP_DIAS 79
--- NOTE | 2019-09-24 16:51 | EKG ---
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
[2019-09-24 19:30] VITALS: BP 174/95
[2019-09-24] MEDS: DOXAZOSIN MESYLATE 1 MG TABLET. PO SCH (20:38)
[2019-09-24] MEDS: ALPRAZolam 0.25 MG TABLET PO PRN (20:38)
[2019-09-24 23:10] VITALS: BP 155/72
[2019-09-25 03:00] VITALS: BP 144/75
[2019-09-25] MEDS: HEPARIN for SUB-Q USE 5,000 UNIT/ML VIAL. SQ SCH ×3 (05:49→20:43)
[2019-09-25 07:00] VITALS: BP 169/89
[2019-09-25 07:01] LABS: ALBUMIN 3.1 g/dL (3.4-5.0); CALCIUM 8.9 mg/dL (8.5-10.1); GFR 6.2; PHOSPHORUS 4.1 mg/dL (2.6-4.7); POTASSIUM 4.1 mmol/L (3.5-5.1)
[2019-09-25 07:11] LABS: BASO % 1 % (0-3); EOS # 0.1 x10^3/uL (0.0-0.7); EOS % 1 % (0-3); HEMATOCRIT 28.1 % (36.0-47.0); HEMOGLOBIN 9.3 g/dL (12.0-15.5); LYMPH # 0.8 x10^3/uL (1.0-4.8); LYMPH % 19 % (24-48); MEAN CORPUSCULAR HEMOGLOBIN 32 pg (25-35); MEAN CORPUSCULAR HGB CONC 33 g/dL (31-37); MEAN CORPUSCULAR VOLUME 98 fL (79-100); MONO # 0.3 x10^3/uL (0.0-1.1); MONO % 7 % (0-9); NEUT # 3.1 x10^3/uL (1.8-7.7); NEUT % 72 % (31-73); PLATELET COUNT 185 x10^3/uL (140-400); RED BLOOD COUNT 2.88 x10^6/uL (3.50-5.40); RED CELL DISTRIBUTION WIDTH 17.1 % (11.5-14.5); WHITE BLOOD COUNT 4.3 x10^3/uL (4.0-11.0)
[2019-09-25] MEDS: ALPRAZolam 0.25 MG TABLET PO PRN ×2 (08:47→20:34)
[2019-09-25] MEDS ORDERED: IV NORMAL SALINE 1000ML BAG 1,000 ML IV PRN ×2 (10:25)
[2019-09-25] MEDS ORDERED: DIALYSIS PATIENT. MC PRN (10:30)
[2019-09-25] MEDS ORDERED: diphenhydrAMINE 50 MG/ML VIAL IV PRN ×2 (10:30)
[2019-09-25] MEDS ORDERED: ACETAMINOPHEN 500 MG TABLET PO PRN (10:30)
[2019-09-25 10:52] VITALS: BP 150/71
[2019-09-25] MEDS ORDERED: LIDOCAINE 1% PF 2 ML VIAL. ONE (11:10)
--- NOTE | 2019-09-25 11:59 | PDOC ---
[employer] [facility] PROGRESS NOTE Chief Complaint Chief Complaint Hyperkalemia ESRD Hypertension Normocytic anemia History of Present Illness History of Present Illness 09/25/19 Patient seen and examined Patient is laying in bed She is doing better today She doesn't have any new complaints Patient requested Leena SANDOVAL nurse Vitals/I&O Vitals/I&O: Vital Signs Date Time Temp Pulse Resp B/P (MAP) Pulse Ox O2 Delivery O2 Flow Rate FiO2 09/25/19 10:52 98.1 78 18 150/71 (97) 96 Room Air 98.1 I & O 09/24/19 09/24/19 09/25/19 15:00 23:00 07:00 Intake Total 400 ml 480 ml Output Total 0 ml 100 ml Balance 400 ml 380 ml Physical Exam General: Alert, Oriented X3, Cooperative, No acute distress Lungs: Clear Abdomen: Soft Extremities: No cyanosis Labs Labs: Laboratory Tests Test 09/25/19 06:20 White Blood Count 4.3 x10^3/uL (4.0-11.0) Red Blood Count 2.88 x10^6/uL (3.50-5.40) Hemoglobin 9.3 g/dL (12.0-15.5) Hematocrit 28.1 % (36.0-47.0) Mean Corpuscular Volume 98 fL (79-100) Mean Corpuscular Hemoglobin 32 pg (25-35) Mean Corpuscular Hemoglobin Concent 33 g/dL (31-37) Red Cell Distribution Width 17.1 % (11.5-14.5) Platelet Count 185 x10^3/uL (140-400) Neutrophils (%) (Auto) 72 % (31-73) Lymphocytes (%) (Auto) 19 % (24-48) Monocytes (%) (Auto) 7 % (0-9) Eosinophils (%) (Auto) 1 % (0-3) Basophils (%) (Auto) 1 % (0-3) Neutrophils # (Auto) 3.1 x10^3/uL (1.8-7.7) Lymphocytes # (Auto) 0.8 x10^3/uL (1.0-4.8) Monocytes # (Auto) 0.3 x10^3/uL (0.0-1.1) Eosinophils # (Auto) 0.1 x10^3/uL (0.0-0.7) Basophils # (Auto) 0.0 x10^3/uL (0.0-0.2) Sodium Level 140 mmol/L (136-145) Potassium Level 4.1 mmol/L (3.5-5.1) Chloride Level 102 mmol/L (98-107) Carbon Dioxide Level 27 mmol/L (21-32) Anion Gap 11 (6-14) Blood Urea Nitrogen 42 mg/dL (7-20) Creatinine 8.0 mg/dL (0.6-1.0) Estimated GFR (Cockcroft-Gault) 6.2 Glucose Level 90 mg/dL (70-99) Calcium Level 8.9 mg/dL (8.5-10.1) Phosphorus Level 4.1 mg/dL (2.6-4.7) Albumin 3.1 g/dL (3.4-5.0) Review of Systems Review of Systems: Denies N/V Denies SOB Assessment and Plan Assessmemt and Plan Problems Medical Problems: (1) ESRD (end stage renal disease) Status: Acute (2) Hyperkalemia Status: Acute Assessment Hyperkalemia ESRD Hypertension Normocytic anemia secondary to RF Noncompliant with dialysis Plan Nephrology folowing HD per Nephrology Trend labs Benadryl 50 mg IV PRN DC per Nephrology approval Comment Review of Relevant I have reviewed the following items miller (where applicable) has been applied. Medications: Current Medications Medications (Trade) Dose Ordered Sig/Marco A Route PRN Reason Start Time Stop Time Status Last Admin Dose Admin Heparin Sodium (Porcine) (Heparin Sodium) 5,000 unit Q8HRS SQ 09/24/19 14:00 09/25/19 05:49 Doxazosin Mesylate (Cardura) 2 mg QHS PO 09/24/19 21:00 09/24/19 20:38 Alprazolam (Xanax) 0.25 mg BID PRN PO ANXIETY / AGITATION 09/24/19 15:30 09/25/19 08:47 LUZ JAMISON III DO Sep 25, 2019 11:59
[2019-09-25] MEDS ORDERED: diphenhydrAMINE 50 MG/ML VIAL IVP ONE (12:00)
--- NOTE | 2019-09-25 12:05 | PDOC ---
Renal-Progress Notes Subjective Notes Notes NO NEW COMPLAINTS History of Present Illness Hx of present illness STABLE Vitals Vitals Vital Signs Date Time Temp Pulse Resp B/P (MAP) Pulse Ox O2 Delivery O2 Flow Rate FiO2 09/25/19 10:52 98.1 78 18 150/71 (97) 96 Room Air 98.1 Weight Weight [ ] I.O. Intake and Output Intake and Output 09/25/19 07:00 Intake Total 880 ml Output Total 100 ml Balance 780 ml Intake Oral 880 ml Output Urine Total 100 ml Labs Labs Laboratory Tests Test 09/25/19 06:20 White Blood Count 4.3 x10^3/uL (4.0-11.0) Red Blood Count 2.88 x10^6/uL (3.50-5.40) Hemoglobin 9.3 g/dL (12.0-15.5) Hematocrit 28.1 % (36.0-47.0) Mean Corpuscular Volume 98 fL (79-100) Mean Corpuscular Hemoglobin 32 pg (25-35) Mean Corpuscular Hemoglobin Concent 33 g/dL (31-37) Red Cell Distribution Width 17.1 % (11.5-14.5) Platelet Count 185 x10^3/uL (140-400) Neutrophils (%) (Auto) 72 % (31-73) Lymphocytes (%) (Auto) 19 % (24-48) Monocytes (%) (Auto) 7 % (0-9) Eosinophils (%) (Auto) 1 % (0-3) Basophils (%) (Auto) 1 % (0-3) Neutrophils # (Auto) 3.1 x10^3/uL (1.8-7.7) Lymphocytes # (Auto) 0.8 x10^3/uL (1.0-4.8) Monocytes # (Auto) 0.3 x10^3/uL (0.0-1.1) Eosinophils # (Auto) 0.1 x10^3/uL (0.0-0.7) Basophils # (Auto) 0.0 x10^3/uL (0.0-0.2) Sodium Level 140 mmol/L (136-145) Potassium Level 4.1 mmol/L (3.5-5.1) Chloride Level 102 mmol/L (98-107) Carbon Dioxide Level 27 mmol/L (21-32) Anion Gap 11 (6-14) Blood Urea Nitrogen 42 mg/dL (7-20) Creatinine 8.0 mg/dL (0.6-1.0) Estimated GFR (Cockcroft-Gault) 6.2 Glucose Level 90 mg/dL (70-99) Calcium Level 8.9 mg/dL (8.5-10.1) Phosphorus Level 4.1 mg/dL (2.6-4.7) Albumin 3.1 g/dL (3.4-5.0) Review of Systems Constitutional: yes: weakness, alert, oriented Ears/Nose/Throat: Yes: no symptom reported Eyes: Yes: no symptom reported Pulmonary: Yes no symptom reported Cardiovascular: Yes no symptom reported Gastrointestional: Yes: nausea Genitourinary: Yes: no symptom reported Musculoskeletal: Yes: muscle stiffness Skin: Yes no symptom reported Psychiatric/Neurological: Yes: no symptom reported Endocrine: Yes: no symptom reported Physical Exam General Appearance: no apparent distress Skin: warm Respiratory: decreased breath sounds Heart: S1S2 Abdomen: soft Genitourinary: bladder flat Extremities: pulses present Neurology: alert, oriented Assessment Assessment IMP HYPERKALEMIA ANEMIA HTN ESRD NON COMPLIANCE PLAN ENC COMPLIANCE KARENA WHEN NEEDED HD TODAY UF TO DW WILL FOLLOW LON LONG MD Sep 25, 2019 12:05
--- NOTE | 2019-09-25 14:34 | NUR ---
SS following for discharge planning. SS reviewed pt chart. Pt is from home and is currently on room air. PT/OT ordered. SS will continue to follow for discharge planning.
[2019-09-25 15:00] VITALS: BP 148/70
[2019-09-25] MEDS: CARVEDILOL 12.5 MG TABLET. PO SCH ×2 (15:50→17:00)
[2019-09-25] MEDS: amLODIPine BESYLATE 10 MG TABLET PO SCH (15:50)
[2019-09-25 19:40] VITALS: BP 144/67
[2019-09-25] MEDS: DOXAZOSIN MESYLATE 1 MG TABLET. PO SCH (20:35)
[2019-09-25] MEDS ORDERED: DARBEPOETIN ALFA 60 MCG/0.3 ML DISP.SYRIN. SQ SCH (21:00)
[2019-09-25 22:45] VITALS: BP 113/58
[2019-09-26 03:10] VITALS: BP 126/58
[2019-09-26] MEDS: HEPARIN for SUB-Q USE 5,000 UNIT/ML VIAL. SQ SCH (06:48)
[2019-09-26 07:00] VITALS: BP 118/57
[2019-09-26] MEDS: CARVEDILOL 12.5 MG TABLET. PO SCH (09:00)
[2019-09-26] MEDS: amLODIPine BESYLATE 10 MG TABLET PO SCH (09:01)
[2019-09-26 09:04] LABS: BASO % 1 % (0-3); EOS % 1 % (0-3); HEMATOCRIT 29.4 % (36.0-47.0); HEMOGLOBIN 9.9 g/dL (12.0-15.5); LYMPH % 25 % (24-48); MEAN CORPUSCULAR HEMOGLOBIN 33 pg (25-35); MEAN CORPUSCULAR HGB CONC 34 g/dL (31-37); MEAN CORPUSCULAR VOLUME 97 fL (79-100); MONO # 0.4 x10^3/uL (0.0-1.1); MONO % 10 % (0-9); NEUT # 2.6 x10^3/uL (1.8-7.7); NEUT % 63 % (31-73); PLATELET COUNT 179 x10^3/uL (140-400); RED BLOOD COUNT 3.02 x10^6/uL (3.50-5.40); RED CELL DISTRIBUTION WIDTH 17.1 % (11.5-14.5); WHITE BLOOD COUNT 4.2 x10^3/uL (4.0-11.0)
[2019-09-26 09:11] LABS: CALCIUM 9.5 mg/dL (8.5-10.1); CREATININE 5.5 mg/dL (0.6-1.0); GFR 9.6; POTASSIUM 3.6 mmol/L (3.5-5.1)
--- NOTE | 2019-09-26 10:32 | PDOC ---
[employer] [facility] PROGRESS NOTE Chief Complaint Chief Complaint Hyperkalemia ESRD Hypertension Normocytic anemia History of Present Illness History of Present Illness 09/26/19 Patient seen and examined Patient sitting in chair She is doing well, with no new complaints Doesn't have dialysis today DW nurse 09/25/19 Patient seen and examined Patient is laying in bed She is doing better today She doesn't have any new complaints Patient requested Benadryl DW nurse Vitals/I&O Vitals/I&O: Vital Signs Date Time Temp Pulse Resp B/P (MAP) Pulse Ox O2 Delivery O2 Flow Rate FiO2 09/26/19 09:01 75 118/57 09/26/19 08:00 Room Air 09/26/19 07:00 98.2 20 90 98.2 I & O 09/25/19 09/25/19 09/26/19 15:00 23:00 07:00 Intake Total 120 ml 240 ml 480 ml Output Total 0 ml Balance 120 ml 240 ml 480 ml Physical Exam General: Alert, Oriented X3, Cooperative, No acute distress Lungs: Clear Abdomen: Soft Extremities: No cyanosis Labs Labs: Laboratory Tests Test 09/26/19 08:50 White Blood Count 4.2 x10^3/uL (4.0-11.0) Red Blood Count 3.02 x10^6/uL (3.50-5.40) Hemoglobin 9.9 g/dL (12.0-15.5) Hematocrit 29.4 % (36.0-47.0) Mean Corpuscular Volume 97 fL (79-100) Mean Corpuscular Hemoglobin 33 pg (25-35) Mean Corpuscular Hemoglobin Concent 34 g/dL (31-37) Red Cell Distribution Width 17.1 % (11.5-14.5) Platelet Count 179 x10^3/uL (140-400) Neutrophils (%) (Auto) 63 % (31-73) Lymphocytes (%) (Auto) 25 % (24-48) Monocytes (%) (Auto) 10 % (0-9) Eosinophils (%) (Auto) 1 % (0-3) Basophils (%) (Auto) 1 % (0-3) Neutrophils # (Auto) 2.6 x10^3/uL (1.8-7.7) Lymphocytes # (Auto) 1.0 x10^3/uL (1.0-4.8) Monocytes # (Auto) 0.4 x10^3/uL (0.0-1.1) Eosinophils # (Auto) 0.0 x10^3/uL (0.0-0.7) Basophils # (Auto) 0.0 x10^3/uL (0.0-0.2) Sodium Level 140 mmol/L (136-145) Potassium Level 3.6 mmol/L (3.5-5.1) Chloride Level 99 mmol/L (98-107) Carbon Dioxide Level 31 mmol/L (21-32) Anion Gap 10 (6-14) Blood Urea Nitrogen 16 mg/dL (7-20) Creatinine 5.5 mg/dL (0.6-1.0) Estimated GFR (Cockcroft-Gault) 9.6 Glucose Level 94 mg/dL (70-99) Calcium Level 9.5 mg/dL (8.5-10.1) Review of Systems Review of Systems: Denies N/V Denies SOB Assessment and Plan Assessmemt and Plan Problems Medical Problems: (1) ESRD (end stage renal disease) Status: Acute (2) Hyperkalemia Status: Acute Assessment Hyperkalemia ESRD Hypertension Normocytic anemia secondary to RF Noncompliant with dialysis Plan Nephrology folowing HD per Nephrology Trend labs Full code DC per Nephrology approval Comment Review of Relevant I have reviewed the following items miller (where applicable) has been applied. Medications: Current Medications Medications (Trade) Dose Ordered Sig/Marco A Route PRN Reason Start Time Stop Time Status Last Admin Dose Admin Darbepoetin Joel (ARANESP for DIALYSIS PTS) 60 mcg WEEKLYHS SQ 09/25/19 21:00 09/25/19 20:36 LUZ JAMISON III DO Sep 26, 2019 10:32
--- NOTE | 2019-09-26 10:34 | PDOC ---
Renal-Progress Notes Subjective Notes Notes FEELS WELL History of Present Illness Hx of present illness STABLE Vitals Vitals Vital Signs Date Time Temp Pulse Resp B/P (MAP) Pulse Ox O2 Delivery O2 Flow Rate FiO2 09/26/19 09:01 75 118/57 09/26/19 08:00 Room Air 09/26/19 07:00 98.2 20 90 98.2 Weight Weight [ ] I.O. Intake and Output Intake and Output 09/26/19 07:00 Intake Total 840 ml Output Total 0 ml Balance 840 ml Intake Oral 840 ml Output Urine Total 0 ml # Voids 2 Labs Labs Laboratory Tests Test 09/26/19 08:50 White Blood Count 4.2 x10^3/uL (4.0-11.0) Red Blood Count 3.02 x10^6/uL (3.50-5.40) Hemoglobin 9.9 g/dL (12.0-15.5) Hematocrit 29.4 % (36.0-47.0) Mean Corpuscular Volume 97 fL (79-100) Mean Corpuscular Hemoglobin 33 pg (25-35) Mean Corpuscular Hemoglobin Concent 34 g/dL (31-37) Red Cell Distribution Width 17.1 % (11.5-14.5) Platelet Count 179 x10^3/uL (140-400) Neutrophils (%) (Auto) 63 % (31-73) Lymphocytes (%) (Auto) 25 % (24-48) Monocytes (%) (Auto) 10 % (0-9) Eosinophils (%) (Auto) 1 % (0-3) Basophils (%) (Auto) 1 % (0-3) Neutrophils # (Auto) 2.6 x10^3/uL (1.8-7.7) Lymphocytes # (Auto) 1.0 x10^3/uL (1.0-4.8) Monocytes # (Auto) 0.4 x10^3/uL (0.0-1.1) Eosinophils # (Auto) 0.0 x10^3/uL (0.0-0.7) Basophils # (Auto) 0.0 x10^3/uL (0.0-0.2) Sodium Level 140 mmol/L (136-145) Potassium Level 3.6 mmol/L (3.5-5.1) Chloride Level 99 mmol/L (98-107) Carbon Dioxide Level 31 mmol/L (21-32) Anion Gap 10 (6-14) Blood Urea Nitrogen 16 mg/dL (7-20) Creatinine 5.5 mg/dL (0.6-1.0) Estimated GFR (Cockcroft-Gault) 9.6 Glucose Level 94 mg/dL (70-99) Calcium Level 9.5 mg/dL (8.5-10.1) Review of Systems Constitutional: yes: weakness, alert, oriented Ears/Nose/Throat: Yes: no symptom reported Eyes: Yes: no symptom reported Pulmonary: Yes no symptom reported Cardiovascular: Yes no symptom reported Gastrointestional: Yes: nausea Genitourinary: Yes: no symptom reported Musculoskeletal: Yes: muscle stiffness Skin: Yes no symptom reported Psychiatric/Neurological: Yes: no symptom reported Endocrine: Yes: no symptom reported Physical Exam General Appearance: no apparent distress Skin: warm Respiratory: decreased breath sounds Heart: S1S2 Abdomen: soft Genitourinary: bladder flat Extremities: pulses present Neurology: alert, oriented Assessment Assessment IMP HYPERKALEMIA-RESOLVED ANEMIA HTN ESRD NON COMPLIANCE PLAN ENC COMPLIANCE KARENA WHEN NEEDED HD TOMORROW OK TO D/C FROM RENAL STANDPOINT WILL FOLLOW LON LONG MD Sep 26, 2019 10:34
[2019-09-26 11:00] VITALS: BP 119/57
--- NOTE | 2019-09-26 14:12 | NUR ---
Discharge Note: DAQUAN ASTORGA Discharge instructions and discharge home medications reviewed with Patient and a copy given. All questions have been answered and understanding verbalized.
== END 2019-09-26 14:05 | disposition home or self-care (01) | DRG 640 ==
LOC: ER 17:10 → 2 SOUTH 18:20
PROVIDERS: ADMIT Internal Medicine; ATTEND Internal Medicine
PROC: 5A1D70Z Performance of Urinary Filtration, Intermittent, Less than 6 Hours Per Day (ICD-10-PCS; principal; 2019-09-24)
PROC: 5A1D70Z Performance of Urinary Filtration, Intermittent, Less than 6 Hours Per Day (ICD-10-PCS; 2019-09-25)
DX: E87.5 Hyperkalemia (principal); N18.6 End stage renal disease; Z68.42 Body mass index [BMI] 45.0-49.9, adult; I12.0 Hypertensive chronic kidney disease with stage 5 chronic kidney disease or end stage renal disease; E78.5 Hyperlipidemia, unspecified; E21.3 Hyperparathyroidism, unspecified; E66.01 Morbid (severe) obesity due to excess calories; D63.1 Anemia in chronic kidney disease; Z88.8 Allergy status to other drugs, medicaments and biological substances; Z91.040 Latex allergy status; Z99.2 Dependence on renal dialysis; Z91.19 Patient's noncompliance with other medical treatment and regimen; Z91.15 Patient's noncompliance with renal dialysis; Z86.73 Personal history of transient ischemic attack (TIA), and cerebral infarction without residual deficits; Z82.49 Family history of ischemic heart disease and other diseases of the circulatory system
CPT/HCPCS: 36415; 80048; 80053; 80069; 81001; 83735; 84484; 85025; 87340; 93005; 96374; J0360; J0882; J1644; 99285-25; G0378

== ENCOUNTER → 2020-07-02 | Outpatient (CLI) | payer MEDICARE, OTHER ==
[~2020-07-02] MED LIST changes: +AMLO-187 PO; -AMLO10TA8 PO; +ATOR40TA59 PO; +SEVE800T9 PO; +TELM80TA PO
--- NOTE | 2020-07-02 10:38 | RAD ---
EXAM: Sonographic guided right breast biopsy; right breast biopsy clip placement; right breast postbiopsy mammogram. HISTORY: 60-year-old female presents for sonographic guided biopsy of a right breast mass demonstrated on a study performed at an outside facility. TECHNIQUE: The risks of the procedure discussed with the patient and written and verbal chest was obtained. Timeout was performed. Sonographic imaging of the right breast was performed and the lesion of concern at the 1:00 position measuring approximately 2.0 cm was identified. This demonstrates internal blood flow and irregular margins and is highly concerning for malignancy. The skin in this location was sterilely prepped, draped and infiltrated with 1 percent lidocaine. Multiple core biopsies were obtained through the lesion of concern with sonographic guidance. A biopsy clip was advanced into the lesion with sonographic guidance. Minimal compression was maintained in a sterile bandage was placed. A postbiopsy mammogram demonstrates the biopsy clip in expected position. There is a mass with architectural distortion and suspicious calcifications in this location. The patient tolerated the procedure without difficulty and was discharged in stable condition. IMPRESSION: Successful sonographic and biopsy of a suspicious mass with associated calcifications within the 1:00 position of the right breast and possibly clip placement. An addendum to this report will be submitted when pathology results are available. Electronically signed by: Roxi Santiago MD (07/02/2020 10:35 AM) [id number]
--- NOTE | 2020-07-02 11:30 | RAD ---
EXAM: Sonographic guided right breast biopsy; right breast biopsy clip placement; right breast postbiopsy mammogram. HISTORY: 60-year-old female presents for sonographic guided biopsy of a right breast mass demonstrated on a study performed at an outside facility. TECHNIQUE: The risks of the procedure were discussed with the patient and written and verbal consent was obtained. Timeout was performed. Sonographic imaging of the right breast was performed and the lesion of concern at the 1:00 position measuring approximately 2.0 cm was identified. This demonstrates internal blood flow and irregular margins and is highly concerning for malignancy. The skin in this location was sterilely prepped, draped and infiltrated with 1 percent lidocaine. Multiple core biopsies were obtained through the lesion of concern with sonographic guidance. A biopsy clip was advanced into the lesion with sonographic guidance. Minimal compression was maintained in a sterile bandage was placed. A postbiopsy mammogram demonstrates the biopsy clip in expected position. There is a mass with architectural distortion and suspicious calcifications in this location. The patient tolerated the procedure without difficulty and was discharged in stable condition. IMPRESSION: Successful sonographic and biopsy of a suspicious mass with associated calcifications within the 1:00 position of the right breast and possibly clip placement. An addendum to this report will be submitted when pathology results are available. Electronically signed by: Roxi Santiago MD (07/02/2020 11:27 AM) [id number]
--- NOTE | 2020-07-04 23:11 | PATHOLOGY ---
[facility] Accession Number: [id number] . 01 Material submitted: . breast - RIGHT BREAST MASS BIOPSY. Modifiers: right . 02 Diagnosis: "RT breast mass BX", biopsy: - INVASIVE DUCTAL CARCINOMA WITH LOBULAR FEATURES, MODERATELY DIFFERENTIATED, GRADE II, INVOLVING MULTIPLE CORES, LONGEST CONTIGUOUS FOCUS MEASURING 1.5 CM ON THE SLIDE. (SEE COMMENT) (CLW:ismael; 07/03/2020) S 07/04/2020 0956 Local . 02 Comment: . Specimen type: Needle biopsy; Tumor site: Rt breast mass; Histologic type: Invasive ductal carcinoma with focal lobular features; Histologic grade: Grade II, moderately differentiated; Tumor quantitation: Involving multiple cores, longest contiguous focus measuring 1.5 cm on the slide; Tubules, nuclei and mitoses: Tubules score - 2-3, nuclei score - 2, mitoses score - 1; LVSI: Not identified; Microcalcifications: Not identified; Prognostic Markers: ER, [place], HER2 and Ki-67; Block: Pending on block A1. . Properly controlled immunohistochemical stains are performed. . Block A2: AE1/AE3 - tumor cells reactive; E-cadherin - tumor cells diffusely reactive. . Spike Driver slides are co-reviewed with Dr. Porter Salinas. Clinical and radiographic correlation is recommended. The case is discussed with Tracey in the office of Dr. Gutierrez on 07/04/2020 at 9:50 AM. . (CLW:ismael; 07/03/2020) . 02 Electronically signed: . Tessy Chen MD, Pathologist NPI- [id number] . 01 Gross description: . The specimen is received in formalin, labeled "Green, Joaquina, right breast biopsy" and consists of 4 needle cores of yellow tissue measuring between 1.4 cm and 1.7 cm in length and 0.2 cm each in diameter which are entirely submitted in A1-A3. The specimen was obtained at 10:42 AM on 07/02/2020 and placed in formalin and 10:43 AM. The cold ischemic time is 1 minute and the total formalin fixation time is greater than 6 hours less than 72 hours. (SDY; 07/02/2020) SYU/SYU 07/02/2020 1743 Local . 02 Pathologist provided ICD-10: C50.911 . 02 CPT . 416984, C34110, F99291 Specimen Comment: A courtesy copy of this report has been sent to [phone] Specimen Comment: Report sent to DR GUTIERREZ / DR RODRIGUEZ Performed at: 01 [facility] [address] [facility] [address], [place] [id number] MD Porter Salinas MD Phone: [phone] [facility]formed at: [facility] [address], [place] [id number] MD Rivera Fernandes MD Phone: [phone]
== END | disposition home or self-care (01) ==
LOC: US 08:42
PROVIDERS: ATTEND Surgery
DX: N63.12 Unspecified lump in the right breast, upper inner quadrant (principal); D05.11 Intraductal carcinoma in situ of right breast; E78.00 Pure hypercholesterolemia, unspecified; E66.9 Obesity, unspecified; I13.2 Hypertensive heart and chronic kidney disease with heart failure and with stage 5 chronic kidney disease, or end stage renal disease; I50.9 Heart failure, unspecified; N18.6 End stage renal disease; G47.30 Sleep apnea, unspecified; F41.9 Anxiety disorder, unspecified; F32.9 Major depressive disorder, single episode, unspecified; M19.90 Unspecified osteoarthritis, unspecified site; Z87.891 Personal history of nicotine dependence; Z79.899 Other long term (current) drug therapy; Z72.89 Other problems related to lifestyle; Z91.040 Latex allergy status; Z91.041 Radiographic dye allergy status
CPT/HCPCS: 19083; 77065; 88305; 88341; 88342; 88361; C1713; 19081; 76942

== ENCOUNTER → 2020-10-01 | Outpatient (CLI) | payer OTHER ==
[~2020-10-01] MED LIST changes: +ASPI-630 PO; -CINA30TA2 PO; +CINA30TA24 PO; +CLOP75TA PO; +LORA0.5T96 PO
--- NOTE | 2020-10-03 04:41 | RAD ---
MRI pelvis without contrast HISTORY: 60-year-old postmenopausal female with adnexal mass. Comparisons: None available at time of exam. FINDINGS: Absence of contrast decreases the ability to differentiate between solid enhancing neoplast ic masses versus nonenhancing masses. Anteverted uterus. Cervix is normal. There is abnormal heterogeneous T2-weighted hyperintense expansi on of the endometrium with a maximum thickness of 1.6 cm, there is no T1 hyperintense signal of the e ndometrium to suggest that this is blood product, this raises the possibility of endometrial hyperpla yeimi or carcinoma in a postmenopausal female. There is no obvious invasion of the inner myometrium by the expanded endometrium. No myometrial masses of the uterus. The right ovary is essentially replaced by a mass which measures 9 cm craniocaudal by 7.8 cm AP by 4. 3 cm transverse, this mass demonstrates extensive fat signal throughout the mass, there are some tiny nonfatty subcentimeter T2-weighted hyperintense foci of the mass inferiorly, as well as a small focu s of fluid signal intensity along the anterior-inferior margin, this mass replaces substance of the r ight ovary and is most typical of a mature cystic teratoma. The left ovary is essentially replaced by cystic change the dominant cyst measuring 4.7 x 2.6 x 3.1 c m with 2 thin internal septations of the cyst which demonstrates several fluid signal intensity. Ther e are 2 separate smaller unilocular T1-weighted and T2-weighted hyperintense hemorrhagic cysts measur ing 2.0 cm and 1.7 cm and a separate subcentimeter unilocular simple cyst cyst. No pelvic free fluid. No adenopathy evident. Bladder and rectum are unremarkable. IMPRESSION: 1. Abnormal expansion of the uterine endometrium with a maximum thickness of 1.6 cm. Given the absenc e of postcontrast imaging, differentiation between complex fluid and proliferative endometrium is nam ited. However, given the absence of T1 weighted hyperintensity, these imaging features are more suspi cious for abnormal proliferative expansion of the endometrium which in this postmenopausal female cou ld indicate endometrial hyperplasia or carcinoma. No uterine myometrial invasion evident. See above. 2. 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 3. Left ovary replaced by cystic change with a dominant 4.7 cm cyst with 2 thin internal septations. Electronically signed by: Amarjit Novoa MD (10/03/2020 4:39 AM) [facility]
== END ==
LOC: MRI 11:21
PROVIDERS: ATTEND Obstetrics & Gynecology
DX: N83.202 Unspecified ovarian cyst, left side (principal); R19.00 Intra-abdominal and pelvic swelling, mass and lump, unspecified site
CPT/HCPCS: 72195

== ENCOUNTER 2020-10-15 07:34 | Observation (INO) | payer OTHER ==
[~2020-10-15] VITALS: Ht 160 cm; Wt 109.1 kg
[2020-10-15] VITALS (9 sets, daily range): BP systolic 127–178; BP diastolic 74–88
[~2020-10-15 07:34] MED LIST changes: +HYDROmorphone 2 MG/ML VIAL IVP PRN; +ISOSULFAN BLUE 1% 50 MG/5 ML VIAL. SQ ONE; +IV RINGERS,LACTATED 1000ML 1,000 ML IV SCH; +MORPHINE SULFATE 2 MG/ML VIAL. IVP PRN; +PROCHLORPERAZINE 10 MG/2 ML VIAL. IVP PRN; +fentaNYL PF VIAL 100 MCG/2 ML VIAL IVP PRN
[2020-10-15 09:38] LABS: CALCIUM 10.1 mg/dL (8.5-10.1); CREATININE 5.8 mg/dL (0.6-1.0); POTASSIUM 3.7 mmol/L (3.5-5.1)
[2020-10-15] MEDS ORDERED: PHENYLEPHRINE in 0.9% NACL PF 1 MG/10 ML SYRINGE. IV ONE (11:21)
[2020-10-15] MEDS ORDERED: DEXAMETHASONE SOD PHOS 4 MG/ML VIAL ONE (11:21)
[2020-10-15] MEDS ORDERED: LIDOCAINE 2% PF 5 ML VIAL. ONE (11:21)
[2020-10-15] MEDS ORDERED: ONDANSETRON PF 4 MG/2 ML VIAL. ONE (11:21)
[2020-10-15] MEDS ORDERED: PROPOFOL 10 MG/ML (20ML) VIAL. IV ONE (11:21)
[2020-10-15] MEDS ORDERED: PHENYLEPHRINE 10 MG/ML VIAL. ONE (11:21)
--- NOTE | 2020-10-15 12:58 | PDOC4 ---
Operative Note Operative Note Operative Note: Preoperative Diagnosis: Right breast cancer Postoperative Diagnosis: Same Procedure: Right simple mastectomy, sentinel lymph node biopsy Surgeon: Jony Title Attorney: Dejuan MEYERS Anesthesia: General EBL: 50 mL Specimen: Right breast stitch 12:00 to pathology, sentinel lymph nodes 1, 2 to pathology Drains: 19 Ecuadorean JEAN CARLOS drain to right chest wall Complications: None Indication: The patient is a 60-year-old female who is referred with right breast cancer. The plan is for a right simple mastectomy with sentinel lymph node biopsy. The risks of surgery were discussed which include bleeding, infection, wound healing problems, pain, anesthetic risk, potential need for additional surgery procedure. She understands and would like to proceed. Description: The patient was initially taken to x-ray where she underwent injection of technetium sulfur colloid. She was then taken to the operating room and laid supine on the operating table. General anesthesia was performed. The right breast and axilla were prepped with ChloraPrep and draped in a standard surgical manner. Five mL of Lymphazurin were injected deep to the nipple areolar complex. Several minutes were allowed to elapse. An elliptical tracing was made around the right breast extending from the medial chest to the axilla. The superior lateral aspect of the tracing was opened with a scalpel. Cautery dissection was carried out into the axillary tissues. There were two separate areas of increased nuclear uptake corresponding to sentinel lymph nodes. These were both harvested and sent to pathology. There was no palpable lymphadenopathy. No other areas of increased nuclear uptake or blue staining were identified. Frozen section evaluation of both lymph nodes was negative for metastasis. We proceeded with the mastectomy. With a scalpel an incision was made along the remainder of the elliptical tracing. Cautery dissection was used to develop the skin flaps. The superior flap was developed first the skin from the deeper breast parenchyma. This was carried superiorly to the level just below the clavicle. In a similar manner the inferior flap was developed which included the inframammary fold. In the medial to lateral fashion the breast was freed off of the chest wall. Several small blood vessels were readily controlled with cautery. The entire breast was then fully excised and a stitch was used to miller the 12 o'clock position. The specimen was sent to pathology. A 19 Ecuadorean round Martin drain was left in the chest wall which exited inferiorly. This was secured to the skin with 2-0 silk. The subcutaneous tissues were approximated with 3-0 Vicryl. The skin was closed with 4-0 Monocryl. A sterile OpSite dressing was then applied. The patient tolerated the procedure well and was sent to the recovery room in [facility]. At the end of the case all counts were correct. PAUL GUTIERREZ MD Oct 15, 2020 12:58
[2020-10-15] MEDS ORDERED: 0.9 % SODIUM CHLORIDE 10 ML DISP.SYRIN. IV PRN (13:00)
[2020-10-15] MEDS: IV NORMAL SALINE 1000ML BAG 1,000 ML IV SCH (13:00)
[2020-10-15] MEDS ORDERED: HYDROcodone/APAP 5/325MG 1 TAB TABLET PO PRN (13:00)
[2020-10-15] MEDS ORDERED: NALOXONE 0.4 MG/ML VIAL. IV PRN (13:00)
[2020-10-15] MEDS ORDERED: HYDROmorphone 2 MG/ML VIAL IV PRN (13:00)
[2020-10-15] MEDS ORDERED: SEVOFLURANE > 120 MINUTES. IH ONE (13:16)
[2020-10-15] MEDS ORDERED: fentaNYL PF VIAL 100 MCG/2 ML VIAL ONE (13:21)
[2020-10-15] MEDS ORDERED: HYDROmorphone 2 MG/ML VIAL ONE (13:46)
[2020-10-15] MEDS ORDERED: hydrALAZINE 20 MG/ML VIAL. ONE (13:46)
[2020-10-15] MEDS: LORazepam 0.5 MG TABLET PO SCH ×3 (14:00→21:04)
--- NOTE | 2020-10-15 14:20 | RAD ---
Radiopharmaceutical injection right breast for sentinel node mapping: Reason for examination: Right breast cancer. Radiopharmaceutical injection requested for intraoperat meera sentinel node biopsy guidance. Procedure and Findings: The patient was informed and consented for radiopharmaceutical injection of the right breast. Using s terile technique, 1000 uCi of Tc 99m filtered tilmanocept was administered transdermally in the peria reolar region at approximately 9:25 AM on 10/15/2020. The patient tolerated the procedure well and the re were no apparent complications. The patient was returned to surgery in stable condition. Impression: Successful radiopharmaceutical injection of the right breast for intraoperative sentinel node mapping . Electronically signed by: Vasiliy Coyle MD (10/15/2020 2:18 PM) [id number]
[2020-10-15] MEDS: CARVEDILOL 12.5 MG TABLET. PO SCH (15:31)
[2020-10-15] MEDS: HYDROcodone/APAP 5/325MG 1 TAB TABLET PO PRN ×2 (15:32→16:49)
--- NOTE | 2020-10-15 15:44 | NUR ---
Have received patient to room 512. Patient alert and oriented. Sister at bedside. IVF infusing tko at this time, approx 100ml left in bag. Dressing right chest dry and intact. JEAN CARLOS drain in place, was emptied just prior to transfer. Dialysis dept, and also Dr Dickerson were informed of consult. Patient on dialysis on Mon-Wed-Fri. Patient medicated for pain with one Lortab after eating some applesauce.Pt has been set up for frequent vital signs. Call light within easy reach. Have requested new phone for room.
[2020-10-15] MEDS ORDERED: hydrALAZINE 20 MG/ML VIAL. IVP ONE (16:00)
[2020-10-15] MEDS ORDERED: HYDROmorphone 2 MG/ML VIAL IVP PRN (16:00)
[2020-10-15] MEDS ORDERED: fentaNYL PF VIAL 100 MCG/2 ML VIAL IVP PRN ×2 (16:00)
[2020-10-15] MEDS ORDERED: PROCHLORPERAZINE 10 MG/2 ML VIAL. IVP PRN (16:00)
[2020-10-15] MEDS ORDERED: MORPHINE SULFATE 2 MG/ML VIAL. IVP PRN (16:00)
[2020-10-15] MEDS ORDERED: IV RINGERS,LACTATED 1000ML 1,000 ML IV SCH (16:00)
[2020-10-15] MEDS: ONDANSETRON PF 4 MG/2 ML VIAL. IVP PRN (20:44)
[2020-10-15] MEDS: ATORVASTATIN CALCIUM 40 MG TABLET. PO SCH (21:00)
[2020-10-15] MEDS: DOXAZOSIN MESYLATE 4 MG TABLET. PO SCH (21:02)
[2020-10-16 03:00] VITALS: BP 108/79
[2020-10-16] MEDS: ONDANSETRON PF 4 MG/2 ML VIAL. IVP PRN (04:26)
[2020-10-16] MEDS: HYDROcodone/APAP 5/325MG 1 TAB TABLET PO PRN (04:27)
[2020-10-16 07:00] VITALS: BP 71/79
[2020-10-16] MEDS: CINACALCET HCL 30 MG TABLET PO SCH ×2 (09:00→10:04)
--- NOTE | 2020-10-16 09:02 | PDOC ---
PROGRESS NOTES Date of Service DATE: 10/16/20 TIME: 09:01 Subjective Subjective doing well Objective Objective Vital Signs Date Time Temp Pulse Resp B/P (MAP) Pulse Ox O2 Delivery O2 Flow Rate FiO2 10/16/20 05:30 93 Room Air 10/16/20 03:00 98.4 87 20 108/79 (89) 98.4 Intake and Output 10/16/20 07:00 Intake Total 600 ml Output Total 75 ml Balance 525 ml Intake Oral 600 ml Output Emesis 75 ml # Voids 1 Physical Exam Physical Exam dressing clean and dry Assessment Assessment POD 1 mastectomy Plan Plan of Care Dialysis today, then discharge Comment Review of Relevant I have reviewed the following items miller (where applicable) has been applied. Labs Laboratory Tests Test 10/15/20 08:30 Sodium Level 140 mmol/L (136-145) Potassium Level 3.7 mmol/L (3.5-5.1) Chloride Level 100 mmol/L (98-107) Carbon Dioxide Level 31 mmol/L (21-32) Anion Gap 9 (6-14) Blood Urea Nitrogen 15 mg/dL (7-20) Creatinine 5.8 mg/dL (0.6-1.0) Estimated GFR (Cockcroft-Gault) 9.0 Glucose Level 90 mg/dL (70-99) Calcium Level 10.1 mg/dL (8.5-10.1) SARS-CoV-2 Antigen (Rapid) Negative (NEGATIVE) Medications Current Medications Fentanyl Citrate (Fentanyl 2ml Vial) 25 mcg PRN Q5MIN PRN IVP MILD PAIN 1-3; Start 10/15/20 at 06:00; Stop 10/15/20 at 20:00; Status DC Fentanyl Citrate (Fentanyl 2ml Vial) 50 mcg PRN Q5MIN PRN IVP MODERATE PAIN 4- 6; Start 10/15/20 at 06:00; Stop 10/15/20 at 20:00; Status DC Morphine Sulfate (Morphine Sulfate) 1 mg PRN Q10MIN PRN IVP SEVERE PAIN 7-10; Start 10/15/20 at 06:00; Stop 10/15/20 at 20:00; Status DC Ringer's Solution 1,000 ml @ 30 mls/hr Q24H IV ; Start 10/15/20 at 06:00; Stop 10/15/20 at 17:59; Status DC Hydromorphone HCl (Dilaudid) 0.5 mg PRN Q10MIN PRN IVP SEVERE PAIN 7-10, 2nd CHOICE; Start 10/15/20 at 06:00; Stop 10/15/20 at 20:00; Status DC Prochlorperazine Edisylate (Compazine) 5 mg PACU PRN PRN IVP NAUSEA, MRX1; Start 10/15/20 at 06:00; Stop 10/15/20 at 20:00; Status DC Levofloxacin/ Dextrose 100 ml @ 100 mls/hr 1X PREOP PRN IV PRIOR TO PROCEDURE; Start 10/15/20 at 06:00; Stop 10/15/20 at 18:00; Status DC Isosulfan Blue (Lymphazurin Blue) 50 mg STK-MED ONCE SQ Last administered on 10/15/20at 11:04; Start 10/15/20 at 07:10; Stop 10/15/20 at 07:11; Status DC Propofol (Diprivan) 200 mg STK-MED ONCE IV ; Start 10/15/20 at 11:21; Stop 10/15/20 at 11:21; Status DC Lidocaine HCl (Lidocaine Pf 2% Vial) 5 ml STK-MED ONCE .ROUTE ; Start 10/15/20 at 11:21; Stop 10/15/20 at 11:22; Status DC Ondansetron HCl (Zofran) 4 mg STK-MED ONCE .ROUTE ; Start 10/15/20 at 11:21; Stop 10/15/20 at 11:22; Status DC Phenylephrine HCl (PHENYLEPHRINE in 0.9% NACL PF) 1 mg STK-MED ONCE IV ; Start 10/15/20 at 11:21; Stop 10/15/20 at 11:22; Status DC Dexamethasone Sodium Phosphate (Decadron) 4 mg STK-MED ONCE .ROUTE ; Start 10/15 at 11:21; Stop 10/15/20 at 11:22; Status DC Phenylephrine HCl (Stewart-Synephrine Inj) 10 mg STK-MED ONCE .ROUTE ; Start at 11:21; Stop 10/15/20 at 11:22; Status DC Sodium Chloride (Normal Saline Flush) 3 ml QSHIFT PRN IV AFTER MEDS AND BLOOD D RAWS; Start 10/15/20 at 13:00 Acetaminophen/ Hydrocodone Bitart (Lortab 5/325) 1 tab PRN Q4HRS PRN PO MILD PAIN 1-3 Last administered on 10/16/20at 04:27; Start 10/15/20 at 13:00 Acetaminophen/ Hydrocodone Bitart (Lortab 5/325) 2 tab PRN Q4HRS PRN PO MODE RATE PAIN, SEVERE PAIN; Start 10/15/20 at 13:00 Naloxone HCl (Narcan) 0.4 mg PRN Q2MIN PRN IV SEE INSTRUCTIONS; Start 10/15/20 at 13:00 Sodium Chloride 1,000 ml @ 25 mls/hr Q24H IV ; Start 10/15/20 at 13:00 Hydromorphone HCl (Dilaudid) 0.2 mg PRN Q1HR PRN IV PAIN; Start 10/15/20 at 13:00 Ondansetron HCl (Zofran) 4 mg PRN Q6HRS PRN IVP NACORRINA, 1ST CHOICE Last administered on 10/16/20at 04:26; Start 10/15/20 at 13:00 Amlodipine Besylate (Norvasc) 10 mg DAILY PO ; Start 10/16/20 at 09:00 Aspirin (Aspirin Chewable) 81 mg DAILY PO ; Start 10/16/20 at 09:00 Atorvastatin Calcium (Lipitor) 40 mg HS PO ; Start 10/15/20 at 21:00 Cinacalcet (Sensipar) 90 mg DAILY PO ; Start 10/16/20 at 09:00 Clopidogrel Bisulfate (Plavix) 75 mg DAILY PO ; Start 10/16/20 at 09:00 Vitamin B Complex/ Vitamin C (Miracle-Jacques) 1 tab DAILY PO ; Start 10/16/20 at 09:00 Hydralazine HCl (Apresoline) 50 mg TID PO Last administered on 10/15/20at 21:02; Start 10/15/20 at 14:00 Lorazepam (Ativan) 0.5 mg TID PO Last administered on 10/15/20at 21:04; Start 10/15/20 at 14:00 Carvedilol (Coreg) 25 mg BIDWMEALS PO Last administered on 10/15/20at 15:31; Start 10/15/20 at 17:00 Doxazosin Mesylate (Cardura) 8 mg QHS PO Last administered on 10/15/20at 21:02; Start 10/15/20 at 21:00 Sevoflurane (Ultane) 90 ml STK-MED ONCE IH ; Start 10/15/20 at 13:16; Stop 10/15/20 at 13:16; Status DC Fentanyl Citrate (Fentanyl 2ml Vial) 100 mcg STK-MED ONCE .ROUTE ; Start 10/15/20 at 13:21; Stop 10/15/20 at 13:21; Status DC Hydralazine HCl (Apresoline Inj) 20 mg STK-MED ONCE .ROUTE ; Start 10/15/20 at 13:46; Stop 10/15/20 at 13:46; Status DC Hydromorphone HCl (Dilaudid) 2 mg STK-MED ONCE .ROUTE ; Start 10/15/20 at 13:46; Stop 10/15/20 at 13:46; Status DC Hydralazine HCl (Apresoline Inj) 10 mg ONCE ONCE IVP ; Start 10/15/20 at 16:00; Stop 10/16/20 at 07:18; Status DC Fentanyl Citrate (Fentanyl 2ml Vial) 25 mcg PRN Q5MIN PRN IVP MILD PAIN 1-3; Start 10/15/20 at 16:00; Stop 10/17/20 at 15:59 Fentanyl Citrate (Fentanyl 2ml Vial) 50 mcg PRN Q5MIN PRN IVP MODERATE PAIN 4- 6; Start 10/15/20 at 16:00; Stop 10/17/20 at 15:59 Morphine Sulfate (Morphine Sulfate) 1 mg PRN Q10MIN PRN IVP SEVERE PAIN 7-10; Start 10/15/20 at 16:00; Stop 10/17/20 at 15:59 Ringer's Solution 1,000 ml @ 30 mls/hr Q24H IV ; Start 10/15/20 at 16:00; Stop 10/16/20 at 15:59 Hydromorphone HCl (Dilaudid) 0.5 mg PRN Q10MIN PRN IVP SEVERE PAIN 7-10, 2nd CHOICE; Start 10/15/20 at 16:00; Stop 10/17/20 at 15:59 Prochlorperazine Edisylate (Compazine) 5 mg PACU PRN PRN IVP NAUSEA, MRX1; Start 10/15/20 at 16:00; Stop 10/17/20 at 15:59 Active Scripts Active Reported Clopidogrel (Clopidogrel Bisulfate) 75 Mg Tablet 1 Tab PO DAILY Nephro-Jacqeus Tablet (Folic Acid/Vitamin B Comp W-C) 0.8 Mg Tablet 1 Tab PO DAILY Ativan (Lorazepam) 0.5 Mg Tablet 0.5 Mg PO TID Aspirin 81 Mg Tab.chew 1 Tab PO DAILY Atorvastatin Calcium 40 Mg Tablet 40 Mg PO HS Coreg (Carvedilol) 25 Mg Tablet 1 Tab PO BID Hydralazine Hcl 50 Mg Tablet 1 Tab PO TID Amlodipine Besylate 10 Mg Tablet 1 Tab PO DAILY Doxazosin Mesylate 2 Mg Tablet 8 Mg PO QHS Sensipar (Cinacalcet Hcl) 30 Mg Tablet 90 Mg PO DAILY Vitals/I & O Vital Sign - Last 24 Hours 10/15/20 10/15/20 10/15/20 10/15/20 15:00 15:20 15:31 15:32 Temp 97.3 97.3 Pulse 91 89 87 Resp 16 20 B/P (MAP) 158/76 (103) 146/82 (103) 146/82 Pulse Ox 98 99 95 O2 Delivery Nasal Cannula Nasal Cannula Room Air 10/15/20 10/15/20 10/15/20 10/15/20 15:35 15:50 16:00 16:20 Pulse 86 85 88 B/P (MAP) 163/82 (109) 170/77 (108) 156/78 (104) Pulse Ox 97 99 96 O2 Delivery Nasal Cannula Nasal Cannula Room Air Nasal Cannula 10/15/20 10/15/20 10/15/20 10/15/20 16:32 16:49 16:50 17:49 Pulse 90 Resp 20 18 20 B/P (MAP) 178/82 (114) Pulse Ox 100 95 97 100 O2 Delivery Room Air Room Air Nasal Cannula Room Air 10/15/20 10/15/20 10/15/20 10/15/20 17:50 19:00 19:40 21:02 Temp 97.6 97.6 Pulse 103 88 88 Resp 20 B/P (MAP) 157/84 (108) 127/88 (101) 127/88 Pulse Ox 100 94 O2 Delivery Nasal Cannula Room Air Room Air 10/15/20 10/15/20 10/16/20 10/16/20 21:02 23:00 03:00 04:27 Temp 97.5 98.4 97.5 98.4 Pulse 88 87 87 Resp 20 20 B/P (MAP) 127/88 130/74 (92) 108/79 (89) Pulse Ox 93 98 93 O2 Delivery Room Air Room Air Room Air 10/16/20 05:30 Pulse Ox 93 O2 Delivery Room Air Intake and Output 10/15/20 10/15/20 10/16/20 15:00 23:00 07:00 Intake Total 200 ml 400 ml Output Total 75 ml Balance 125 ml 400 ml Justifications for Admission Other Justification PAUL GUTIERREZ MD Oct 16, 2020 09:02
--- NOTE | 2020-10-16 09:09 | DISCH ---
DISCHARGE INSTRUCTIONS Condition on Discharge Condition on Discharge: Stable Activity After Discharge Activity Instructions for Disc: Activity as tolerated, Other, see below Diet after Discharge Diet after Discharge: Renal Dialysis Wound Incision Care Wound/Incision Care: Other, see below (keep dressing clean and dry, sponge bathe around the dressing and drain; record JEAN CARLOS drain output twice daily, bring record to follow up appointment) Contacting the after DC Call your doctor for: Concerns you may have Follow-Up Follow up with: Dr Gutierrez in office in 1 week, call for appointment [phone] PAUL GUTIERREZ MD Oct 16, 2020 09:09
[2020-10-16] MEDS: FOLIC/VIT B COMP W-C (RENAL) TABLET. PO SCH (10:00)
[2020-10-16] MEDS: CARVEDILOL 12.5 MG TABLET. PO SCH ×2 (10:01→17:00)
[2020-10-16] MEDS: amLODIPine BESYLATE 10 MG TABLET PO SCH (10:02)
[2020-10-16] MEDS: LORazepam 0.5 MG TABLET PO SCH ×3 (10:05→21:42)
[2020-10-16] MEDS: ASPIRIN CHEWABLE 81 MG TABLET. PO SCH (10:05)
[2020-10-16] MEDS: CLOPIDOGREL BISULFATE 75 MG TABLET PO SCH (10:11)
--- NOTE | 2020-10-16 10:39 | NUR ---
SW following. Discussed with RN, pt from home, room air, regular diet. Pt discharging with JEAN CARLOS drain. Pt had surgery on 10/15/20. Discharge order for home with self care after pt is done with dialysis. RN advised no SW needs. SW will continue to follow.
[2020-10-16 11:00] VITALS: BP 138/84
[2020-10-16] MEDS: IV NORMAL SALINE 1000ML BAG 1,000 ML IV SCH (13:00)
--- NOTE | 2020-10-16 13:55 | PDOC2 ---
CONSULT Date of Consult Date of Consult DATE: 10/16/20 TIME: 13:48 Reason for Consult Reason for Consult: ESRD Source Source: Chart review, Patient History of Present Illness Reason for Visit: Pt is a 60 yo AAF with Dx of ESRD on HD MWF, Right breast cancer s/p Right simple mastectomy 03/14 . Renal consulted as today is her routine dialysis day. Denies any CP, SOB, No f/c. No N/V/D. Past Medical History Cardiovascular: HTN, Hyperlipidemia Pulmonary: Other GI: No pertinent hx Heme/Onc: Anemia NOS Hepatobiliary: No pertinent hx Psych: No pertinent hx Infectious disease: No pertinent hx Endocrine: Hyperparathyroidism Past Surgical History Past Surgical History: No pertinent history Family History Family History: Hypertension Social History ALCOHOL: none Drugs: None Current Medications Current Medications Current Medications Fentanyl Citrate (Fentanyl 2ml Vial) 25 mcg PRN Q5MIN PRN IVP MILD PAIN 1-3; Start 10/15/20 at 06:00; Stop 10/15/20 at 20:00; Status DC Fentanyl Citrate (Fentanyl 2ml Vial) 50 mcg PRN Q5MIN PRN IVP MODERATE PAIN 4- 6; Start 10/15/20 at 06:00; Stop 10/15/20 at 20:00; Status DC Morphine Sulfate (Morphine Sulfate) 1 mg PRN Q10MIN PRN IVP SEVERE PAIN 7-10; Start 10/15/20 at 06:00; Stop 10/15/20 at 20:00; Status DC Ringer's Solution 1,000 ml @ 30 mls/hr Q24H IV ; Start 10/15/20 at 06:00; Stop 10/15/20 at 17:59; Status DC Hydromorphone HCl (Dilaudid) 0.5 mg PRN Q10MIN PRN IVP SEVERE PAIN 7-10, 2nd CHOICE; Start 10/15/20 at 06:00; Stop 10/15/20 at 20:00; Status DC Prochlorperazine Edisylate (Compazine) 5 mg PACU PRN PRN IVP NAUSEA, MRX1; Start 10/15/20 at 06:00; Stop 10/15/20 at 20:00; Status DC Levofloxacin/ Dextrose 100 ml @ 100 mls/hr 1X PREOP PRN IV PRIOR TO PROCEDURE; Start 10/15/20 at 06:00; Stop 10/15/20 at 18:00; Status DC Isosulfan Blue (Lymphazurin Blue) 50 mg STK-MED ONCE SQ Last administered on 10/15/20at 11:04; Start 10/15/20 at 07:10; Stop 10/15/20 at 07:11; Status DC Propofol (Diprivan) 200 mg STK-MED ONCE IV ; Start 10/15/20 at 11:21; Stop 10/15/20 at 11:21; Status DC Lidocaine HCl (Lidocaine Pf 2% Vial) 5 ml STK-MED ONCE .ROUTE ; Start 10/15/20 at 11:21; Stop 10/15/20 at 11:22; Status DC Ondansetron HCl (Zofran) 4 mg STK-MED ONCE .ROUTE ; Start 10/15/20 at 11:21; Stop 10/15/20 at 11:22; Status DC Phenylephrine HCl (PHENYLEPHRINE in 0.9% NACL PF) 1 mg STK-MED ONCE IV ; Start 10/15/20 at 11:21; Stop 10/15/20 at 11:22; Status DC Dexamethasone Sodium Phosphate (Decadron) 4 mg STK-MED ONCE .ROUTE ; Start 10/15/20 at 11:21; Stop 10/15/20 at 11:22; Status DC Phenylephrine HCl (Stewart-Synephrine Inj) 10 mg STK-MED ONCE .ROUTE ; Start 10/15/20 at 11:21; Stop 10/15/20 at 11:22; Status DC Sodium Chloride (Normal Saline Flush) 3 ml QSHIFT PRN IV AFTER MEDS AND BLOOD DRAWS; Start 10/15/20 at 13:00 Acetaminophen/ Hydrocodone Bitart (Lortab 5/325) 1 tab PRN Q4HRS PRN PO MILD PAIN 1-3 Last administered on 10/16/20at 04:27; Start 10/15/20 at 13:00 Acetaminophen/ Hydrocodone Bitart (Lortab 5/325) 2 tab PRN Q4HRS PRN PO MODERATE PAIN, SEVERE PAIN; Start 10/15/20 at 13:00 Naloxone HCl (Narcan) 0.4 mg PRN Q2MIN PRN IV SEE INSTRUCTIONS; Start 10/15/20 at 13:00 Sodium Chloride 1,000 ml @ 25 mls/hr Q24H IV ; Start 10/15/20 at 13:00 Hydromorphone HCl (Dilaudid) 0.2 mg PRN Q1HR PRN IV PAIN; Start 10/15/20 at 13:00 Ondansetron HCl (Zofran) 4 mg PRN Q6HRS PRN IVP NAUESA, 1ST CHOICE Last administered on 10/16/20at 04:26; Start 10/15/20 at 13:00 Amlodipine Besylate (Norvasc) 10 mg DAILY PO Last administered on 10/16/20at 10:02; Start 10/16/20 at 09:00 Aspirin (Aspirin Chewable) 81 mg DAILY PO Last administered on 10/16/20at 10:05; Start 10/16/20 at 09:00 Atorvastatin Calcium (Lipitor) 40 mg HS PO ; Start 10/15/20 at 21:00 Cinacalcet (Sensipar) 90 mg DAILY PO ; Start 10/16/20 at 09:00 Clopidogrel Bisulfate (Plavix) 75 mg DAILY PO Last administered on 10/16/20at 10:11; Start 10/16/20 at 09:00 Vitamin B Complex/ Vitamin C (Miracle-Jacques) 1 tab DAILY PO Last administered on 10/16/20at 10:00; Start 10/16/20 at 09:00 Hydralazine HCl (Apresoline) 50 mg TID PO Last administered on 10/16/20at 10:03; Start 10/15/20 at 14:00 Lorazepam (Ativan) 0.5 mg TID PO Last administered on 10/16/20at 10:05; Start 10/15/20 at 14:00 Carvedilol (Coreg) 25 mg BIDWMEALS PO Last administered on 10/16/20at 10:01; Start 10/15/20 at 17:00 Doxazosin Mesylate (Cardura) 8 mg QHS PO Last administered on 10/15/20at 21:02; Start 10/15/20 at 21:00 Sevoflurane (Ultane) 90 ml STK-MED ONCE IH ; Start 10/15/20 at 13:16; Stop 10/15/20 at 13:16; Status DC Fentanyl Citrate (Fentanyl 2ml Vial) 100 mcg STK-MED ONCE .ROUTE ; Start 10/15/20 at 13:21; Stop 10/15/20 at 13:21; Status DC Hydralazine HCl (Apresoline Inj) 20 mg STK-MED ONCE .ROUTE ; Start 10/15/20 at 13:46; Stop 10/15/20 at 13:46; Status DC Hydromorphone HCl (Dilaudid) 2 mg STK-MED ONCE .ROUTE ; Start 10/15/20 at 13:46; Stop 10/15/20 at 13:46; Status DC Hydralazine HCl (Apresoline Inj) 10 mg ONCE ONCE IVP ; Start 10/15/20 at 16:00; Stop 10/16/20 at 07:18; Status DC Fentanyl Citrate (Fentanyl 2ml Vial) 25 mcg PRN Q5MIN PRN IVP MILD PAIN 1-3; Start 10/15/20 at 16:00; Stop 10/17/20 at 15:59 Fentanyl Citrate (Fentanyl 2ml Vial) 50 mcg PRN Q5MIN PRN IVP MODERATE PAIN 4- 6; Start 10/15/20 at 16:00; Stop 10/17/20 at 15:59 Morphine Sulfate (Morphine Sulfate) 1 mg PRN Q10MIN PRN IVP SEVERE PAIN 7-10; Start 10/15/20 at 16:00; Stop 10/17/20 at 15:59 Ringer's Solution 1,000 ml @ 30 mls/hr Q24H IV ; Start 10/15/20 at 16:00; Stop 10/16/20 at 15:59 Hydromorphone HCl (Dilaudid) 0.5 mg PRN Q10MIN PRN IVP SEVERE PAIN 7-10, 2nd CHOICE; Start 10/15/20 at 16:00; Stop 10/17/20 at 15:59 Prochlorperazine Edisylate (Compazine) 5 mg PACU PRN PRN IVP NAUSEA, MRX1; Start 10/15/20 at 16:00; Stop 10/17/20 at 15:59 Active Scripts Active Reported Clopidogrel (Clopidogrel Bisulfate) 75 Mg Tablet 1 Tab PO DAILY Nephro-Jacques Tablet (Folic Acid/Vitamin B Comp W-C) 0.8 Mg Tablet 1 Tab PO DAILY Ativan (Lorazepam) 0.5 Mg Tablet 0.5 Mg PO TID Aspirin 81 Mg Tab.chew 1 Tab PO DAILY Atorvastatin Calcium 40 Mg Tablet 40 Mg PO HS Coreg (Carvedilol) 25 Mg Tablet 1 Tab PO BID Hydralazine Hcl 50 Mg Tablet 1 Tab PO TID Amlodipine Besylate 10 Mg Tablet 1 Tab PO DAILY Doxazosin Mesylate 2 Mg Tablet 8 Mg PO QHS Sensipar (Cinacalcet Hcl) 30 Mg Tablet 90 Mg PO DAILY Allergies Allergies: Coded Allergies: latex (Verified Allergy, Severe, Rash, 01/20/18) Penicillins (Verified Allergy, Intermediate, Itching, 10/16/20) adhesive tape (Verified Allergy, Intermediate, Itching, 10/16/20) povidone-iodine (Verified Allergy, Intermediate, Itching, 10/16/20) soap (Verified Allergy, Intermediate, Itching, 10/16/20) iodine (Verified Adverse Reaction, Intermediate, 01/20/18) ROS Review of System As per HPI, rest of the ROS is negative Physical Exam Physical Exam GEN: NAD HEEN: OM moist NECK:supple CVS: RRR RESP: CTA, Non labored GI: NT, Obese : No ] CVA tenderness, No gaytan NEURO- Grossly normal DERM- NO rash Vital Signs Vital Signs Date Time Temp Pulse Resp B/P (MAP) Pulse Ox O2 Delivery O2 Flow Rate FiO2 10/16/20 11:00 97.9 80 18 138/84 (102) 96 Room Air 97.9 Assessment & Plan ESRD - On HD MWF Dialysis today , discussed treatment plan with Mary HTN-Home antihypertensives Right breast cancer s/p right simple mastectomy with sentinel lymph node biopsy on 10/15 Labs Labs Laboratory Tests Test 10/15/20 08:30 Sodium Level 140 mmol/L (136-145) Potassium Level 3.7 mmol/L (3.5-5.1) Chloride Level 100 mmol/L (98-107) Carbon Dioxide Level 31 mmol/L (21-32) Anion Gap 9 (6-14) Blood Urea Nitrogen 15 mg/dL (7-20) Creatinine 5.8 mg/dL (0.6-1.0) Estimated GFR (Cockcroft-Gault) 9.0 Glucose Level 90 mg/dL (70-99) Calcium Level 10.1 mg/dL (8.5-10.1) SARS-CoV-2 Antigen (Rapid) Negative (NEGATIVE) Review All relevant outside records, renal labs, imaging studies, telemetry/EKG's were reviewed. VY MCKINNON MD Oct 16, 2020 13:55
[2020-10-16] MEDS ORDERED: DIALYSIS PATIENT. MC PRN (14:30)
[2020-10-16] MEDS ORDERED: IV NORMAL SALINE 1000ML BAG 1,000 ML IV PRN ×2 (14:30)
[2020-10-16 15:00] VITALS: BP 117/61
[2020-10-16] MEDS ORDERED: LIDOCAINE 1% PF 2 ML VIAL. ID STA (15:16)
--- NOTE | 2020-10-16 15:18 | NUR ---
1400 hydralazine held d/t patient going to dialysis
[2020-10-16 19:00] VITALS: BP 98/59
[2020-10-16] MEDS: ATORVASTATIN CALCIUM 40 MG TABLET. PO SCH (21:00)
[2020-10-16 23:00] VITALS: BP 123/56
[2020-10-16] MEDS: DOXAZOSIN MESYLATE 4 MG TABLET. PO SCH (23:12)
[2020-10-17 03:00] VITALS: BP 137/63
[2020-10-17 07:00] VITALS: BP 104/63
[2020-10-17] MEDS: CARVEDILOL 12.5 MG TABLET. PO SCH (08:00)
[2020-10-17] MEDS: ASPIRIN CHEWABLE 81 MG TABLET. PO SCH (08:42)
[2020-10-17] MEDS: LORazepam 0.5 MG TABLET PO SCH (08:43)
[2020-10-17] MEDS: FOLIC/VIT B COMP W-C (RENAL) TABLET. PO SCH (08:43)
[2020-10-17] MEDS: CLOPIDOGREL BISULFATE 75 MG TABLET PO SCH (08:43)
[2020-10-17] MEDS: amLODIPine BESYLATE 10 MG TABLET PO SCH (09:00)
[2020-10-17] MEDS: CINACALCET HCL 30 MG TABLET PO SCH (09:00)
--- NOTE | 2020-10-17 09:45 | NUR ---
SW following. Discussed with RN, pt did not discharge home yesterday as she returned from dialysis late. Pt discharging home today. RN advised no SW needs.
--- NOTE | 2020-10-17 11:14 | NUR ---
patient discharged home with family. meds and follow up reviewed. pt provided w/ printed instructions on JEAN CARLOS drain care. RN demonstrated how to empty drain, measure, and instructed to do so BID and record the information. pt v/u. IV removed, cath intact. pt stable upon dc.
--- NOTE | 2020-10-21 14:08 | PATHOLOGY ---
[facility] Accession Number: [id number] . 01 Material submitted: . PART A: lymph node - SENTINEL LYMPH NODE FROZEN SECTION PART B: lymph node - SENTINEL LYMPH NODE #2 FROZEN SECTION PART C: breast - RIGHT BREAST STITCH 12:00. Modifiers: right, 12:00 . 02 Frozen section diagnosis: . INTRAOPERATIVE CONSULTATION WITH FROZEN SECTION: FSA1. Jolo lymph node #1: - Negative for tumor. . The results are reported to Dr. Borges in the operating room. . FSB1. Jolo lymph node #2: - Negative for tumor. . The results are reported to Dr. Borges in the operating room. (JPM:bryanna 10/15/2020) . FROZEN SECTION GROSS DESCRIPTION: A. The specimen is received fresh for intraoperative consultation and is designated "sentinel lymph node #1". This consists of an irregular segment of yellow fatty tissue measuring up to 4.0 cm in length and 2.5 cm in width. Sectioning reveals a yellow and sampson slightly lobulated lymph node measuring up to 3.5 cm in length and showing partial fatty replacement with a thin rim of brown cortex. One half of this node is submitted for frozen section as FSA1. The tissue remaining from frozen section is submitted for permanent sections as A1. The remainder of the lymph node is submitted for microscopy as A2. . B. The specimen is received fresh for intraoperative consultation and is designated "sentinel lymph node #2". This consists of a segment of yellow-red fatty tissue measuring up to 2.5 cm in length and 1.7 cm in width. Sectioning reveals a yellow-sampson partially fatty replaced lymph node measuring up to 1.9 cm in greatest dimension. This is submitted without sectioning as FSB1. The tissue remaining from frozen section is submitted for permanent sections as B1. (JPM:pit:db 10/15/2020) . Frozen sections performed at [facility], [address] [place] [address], [place] [address]. ALBINO/MBMarjorie . 02 Diagnosis: A. Jolo lymph node #1, excision: - Negative for tumor (0/1). . B. Jolo lymph node #2, excision: - Negative for tumor (0/1). . C. Breast, right simple mastectomy: - RESIDUAL INVASIVE DUCTAL CARCINOMA, MODERATELY DIFFERENTIATED (GRADE 2), FORMING A TUMOR MASS AT THE 12:00 POSITION MEASURING 2.3 CM IN GREATEST DIMENSION. - DUCTAL CARCINOMA IN SITU, INTERMEDIATE GRADE, PAPILLARY TYPE, FOCAL, UPPER INNER QUADRANT. - INVASIVE CARCINOMA IS APPROXIMATELY 0.9 CM FROM THE CLOSEST SUPERIOR/ANTERIOR MARGIN OF RESECTION. - DEEP MARGIN OF RESECTION NEGATIVE FOR TUMOR. - NIPPLE NEGATIVE FOR TUMOR. - Previous biopsy site changes. - Proliferative fibrocystic changes with the following components: - Moderate ductal epithelial hyperplasia, focal. - Nodular periductal and confluent stromal fibrosis, focal. - Duct ectasia. . . Surgical Pathology Cancer Case Summary . INVASIVE CARCINOMA OF THE BREAST: Resection . Procedure ___ Simple mastectomy . Specimen Laterality ___ Right . + Tumor Site + ___ Clock position: 12:00 . Tumor Size ___ Greatest dimension of largest invasive focus >1 mm: 23 mm . Histologic Type ___ Invasive carcinoma of no special type (ductal) . Histologic Grade (Paul Histologic Score) . Glandular (Acinar)/Tubular Differentiation ___ Score 3 (<10% of tumor area forming glandular/tubular structures) . Nuclear Pleomorphism ___ Score 2 (cells larger than normal with open vesicular nuclei, visible nucleoli, and moderate variability in both size and shape) . Mitotic Rate ___ Score 2 . Overall Grade ___ Grade 2 (scores of 6 or 7) . Ductal Carcinoma In Situ (DCIS) ___ Present + ___ Negative for extensive intraductal component (EIC) . ___ Architectural Patterns + ___ Papillary . + Nuclear Grade + ___ Grade II (intermediate) . + Necrosis (If DCIS is present in specimen) + ___ Not identified . + Lobular Carcinoma In Situ (LCIS) + ___ Not identified . Margins . Invasive Carcinoma Margins ___ Uninvolved by invasive carcinoma Distance from closest margin: 9 mm . + Specify closest margin(s): Superior Anterior margin . + Distance from other margins: + ___ Posterior: 70 mm . DCIS Margins ___ Uninvolved by DCIS . Regional Lymph Nodes ___ Uninvolved by tumor cells Total Number of Lymph Nodes Examined: 2 Number of Jolo Nodes Examined: 2 . + Lymphovascular Invasion + ___ Not identified . + Dermal Lymphovascular Invasion + ___ Not identified . Pathologic Stage Classification (pTNM, AJCC 8th Edition) . Primary Tumor (pT) ___ pT2:Tumor >20 mm but =50 mm in greatest dimension . Regional Lymph Nodes (pN) ___ pN0:No regional lymph node metastasis identified or ITCs only . + Additional Pathologic Findings: See diagnoses . + Microcalcifications + ___ Present in DCIS . (JPM:mml; 10/21/2020) LBQ 10/21/2020 1327 Local . 02 Comment: The sentinel lymph nodes are examined at multiple levels. In addition, immunoperoxidase stains for AE1/AE3 are also obtained on the sentinel lymph nodes and yield the following results: . AE1/AE3 (A1): Negative for tumor AE1/AE3 (B1): Negative for tumor . Thus, there are a total of two sentinel lymph nodes which are negative for tumor. . (JPM/db/mml; 10/18/2020) . 02 Electronically signed: . Rivera Fernandes MD, Pathologist NPI- [id number] . 01 Gross description: . A. PLEASE SEE GROSS DESCRIPTION UNDER FROZEN SECTION DIAGNOSIS. . B. PLEASE SEE GROSS DESCRIPTION UNDER FROZEN SECTION DIAGNOSIS. . C. The specimen is received in formalin, labeled "Green, Joaquina, right breast stitch 12:00" and consists of an oriented 1259 g mastectomy specimen with a stitch designating 12:00. The breast tissue measures 23.0 x 17.0 x 6.0 cm with an unremarkable anterior skin ellipse measuring 24.6 x 16.0 cm which displays an everted nipple areolar complex measuring 5.5 x 5.5 cm. Superior/anterior is inked blue, inferior anterior green, and posterior black. It is sectioned revealing a multi lobulated pink mass at the approximate 12:00 measuring 2.3 x 2.1 cm that is to margins as follows: 0.7 cm superior, 7.0 cm posterior, 11.8 cm inferior. The mass shows previous biopsy changes. The uninvolved parenchyma is yellow orange lobulated with approximately 10% fibrous tissue and no additional masses or lesions. Public Improvement Inspector sections are submitted as follows: . C1: Nipple C2: Mass to superior C3: Largest full thickness mass C4: Additional mass C5: Posterior margin C6: Upper inner quadrant C7: Lower inner quadrant C8: Upper outer quadrant C9: Lower outer quadrant (SDY; 10/16/2020) SYU/MBR 10/18/2020 1702 Local . 02 Pathologist provided ICD-10: C50.911, D05.11, N60.11, N62, N60.31, N60.41 . 02 CPT . 402894, 452873, 504654, 044444, 120840, [id number] Specimen Comment: A courtesy copy of this report has been sent to [phone] Specimen Comment: [id number] Specimen Comment: Report sent to / DR RODRIGUEZ Performed at: 01 [facility] [address], [place] [id number] MD Porter Salinas MD Phone: [phone] Performed at: 02 [facility] [address] [place], [place] [id number] MD Rivera Fernandes MD Phone: [phone]
== END 2020-10-17 10:11 | disposition home or self-care (01) ==
LOC: SURG 07:34 → 5 NORTH 14:16
PROVIDERS: ADMIT Surgery; ATTEND Surgery
DX: C50.911 Malignant neoplasm of unspecified site of right female breast (principal); Z20.828 Contact with and (suspected) exposure to other viral communicable diseases; I12.0 Hypertensive chronic kidney disease with stage 5 chronic kidney disease or end stage renal disease; N18.6 End stage renal disease; E78.5 Hyperlipidemia, unspecified; E21.3 Hyperparathyroidism, unspecified; F17.210 Nicotine dependence, cigarettes, uncomplicated; D64.9 Anemia, unspecified; Z99.2 Dependence on renal dialysis; Z79.82 Long term (current) use of aspirin
CPT/HCPCS: 19303; 36415; 38525; 38792; 80048; 87426; 88307; 88331; 88342; 96374; 96376; 99406; A9520; G0378; G0379; J0360; J1100; J1170; J1956; J2370; J2405; J2704; J3010; J3490; Q9968; U0003

== ENCOUNTER → 2020-12-12 | Outpatient (CLI) | payer OTHER ==
[~2020-12-12] MED LIST changes: -HYDROmorphone 2 MG/ML VIAL IVP PRN; -ISOSULFAN BLUE 1% 50 MG/5 ML VIAL. SQ ONE; -IV RINGERS,LACTATED 1000ML 1,000 ML IV SCH; -MORPHINE SULFATE 2 MG/ML VIAL. IVP PRN; -PROCHLORPERAZINE 10 MG/2 ML VIAL. IVP PRN; -fentaNYL PF VIAL 100 MCG/2 ML VIAL IVP PRN
[2020-12-12 12:15] LABS: BASO % 1 % (0-3); EOS # 0.1 x10^3/uL (0.0-0.7); EOS % 2 % (0-3); HEMATOCRIT 24.9 % (36.0-47.0); HEMOGLOBIN 8.7 g/dL (12.0-15.5); LYMPH # 0.8 x10^3/uL (1.0-4.8); LYMPH % 19 % (24-48); MEAN CORPUSCULAR HEMOGLOBIN 33 pg (25-35); MEAN CORPUSCULAR HGB CONC 35 g/dL (31-37); MEAN CORPUSCULAR VOLUME 95 fL (79-100); MONO # 0.2 x10^3/uL (0.0-1.1); MONO % 6 % (0-9); NEUT # 2.8 x10^3/uL (1.8-7.7); NEUT % 72 % (31-73); PLATELET COUNT 180 x10^3/uL (140-400); RED BLOOD COUNT 2.63 x10^6/uL (3.50-5.40); RED CELL DISTRIBUTION WIDTH 14.5 % (11.5-14.5); WHITE BLOOD COUNT 3.9 x10^3/uL (4.0-11.0)
[2020-12-12 12:27] LABS: CALCIUM 10.5 mg/dL (8.5-10.1); CREATININE 4.5 mg/dL (0.6-1.0); POTASSIUM 3.1 mmol/L (3.5-5.1)
[2020-12-12 12:32] LABS: ALBUMIN 3.1 g/dL (3.4-5.0); ALBUMIN/GLOBULIN RATIO 0.7 (1.0-1.7); TOTAL BILIRUBIN 0.4 mg/dL (0.2-1.0); TOTAL PROTEIN 7.7 g/dL (6.4-8.2)
[2020-12-13 08:18] LABS: CA 27.29 24.4 U/mL (0.0-38.6)
== END ==
LOC: ONCLAB 11:59
PROVIDERS: ATTEND Physician Assistant
DX: C50.911 Malignant neoplasm of unspecified site of right female breast (principal)
CPT/HCPCS: 36415; 80053; 82668; 82728; 83540; 83550; 83615; 85025; 86300

== ENCOUNTER → 2021-01-08 | Outpatient (CLI) | payer OTHER ==
[2021-01-08 09:10] LABS: BASO % 1 % (0-3); EOS % 1 % (0-3); HEMOGLOBIN 8.8 g/dL (12.0-15.5); LYMPH # 0.7 x10^3/uL (1.0-4.8); LYMPH % 21 % (24-48); MEAN CORPUSCULAR HEMOGLOBIN 33 pg (25-35); MEAN CORPUSCULAR HGB CONC 34 g/dL (31-37); MEAN CORPUSCULAR VOLUME 97 fL (79-100); MONO # 0.2 x10^3/uL (0.0-1.1); MONO % 7 % (0-9); NEUT # 2.4 x10^3/uL (1.8-7.7); NEUT % 70 % (31-73); PLATELET COUNT 178 x10^3/uL (140-400); RED BLOOD COUNT 2.68 x10^6/uL (3.50-5.40); RED CELL DISTRIBUTION WIDTH 15.5 % (11.5-14.5); WHITE BLOOD COUNT 3.5 x10^3/uL (4.0-11.0)
[2021-01-08 09:23] LABS: CALCIUM 10.2 mg/dL (8.5-10.1); CREATININE 7.7 mg/dL (0.6-1.0); GFR 6.5
[2021-01-08 09:28] LABS: ALBUMIN 3.5 g/dL (3.4-5.0); ALBUMIN/GLOBULIN RATIO 0.9 (1.0-1.7); TOTAL BILIRUBIN 0.3 mg/dL (0.2-1.0); TOTAL PROTEIN 7.6 g/dL (6.4-8.2)
[2021-01-08 09:36] LABS: FREE T4 1.17 ng/dL (0.76-1.46); THYROID STIM HORMONE (TSH) 2.216 uIU/mL (0.358-3.74)
[2021-01-09 12:18] LABS: ALBUM 3.5 g/dL (2.9-4.4); ALPHA 1 0.2 g/dL (0.0-0.4); ALPHA 2 0.8 g/dL (0.4-1.0); BETA 0.8 g/dL (0.7-1.3); GAMMA 1.8 g/dL (0.4-1.8); PROTEIN TOTAL 7.1 g/dL (6.0-8.5)
[2021-01-09 15:13] LABS: KAPPA FREE 283.4 mg/L (3.3-19.4); KAPPA LAMBDA RATIO 1.47 (0.26-1.65); LAMBDA FREE 193.3 mg/L (5.7-26.3)
[2021-01-09 16:10] LABS: COMMENT IMMUNOFIX SERUM Note: (.); IMMUNOGLOBULIN A 127 mg/dL (87-352); IMMUNOGLOBULIN G 1442 mg/dL (586-1602); IMMUNOGLOBULIN M 201 mg/dL (26-217)
== END ==
LOC: ONCLAB 08:35
PROVIDERS: ATTEND Physician Assistant
DX: C50.211 Malignant neoplasm of upper-inner quadrant of right female breast (principal); I10 Essential (primary) hypertension; N18.6 End stage renal disease
CPT/HCPCS: 36415; 80053; 82306; 82784; 83520; 83921; 84165; 84439; 84443; 85025; 86334

== ENCOUNTER → 2021-01-10 | Outpatient (CLI) | payer OTHER ==
--- NOTE | 2021-01-10 11:48 | KCIC ---
INDICATION: Screening for osteopenia/osteoporosis. Postmenopausal evaluation. COMPARISON: None. TECHNIQUE: Bone densitometry was performed through the lumbar spine and proximal femur. IMPRESSION: Lumbar Spine: BMD: 1.14 T-Score: 0.8 Range: Normal Proximal Femur: BMD: 0.9 T-Score: -0.2 Range: Normal World Health Organization Criteria for Bone Density: T-Score: > -1.0: Normal Range < -1.0 to -2.5: Osteopenic Range < -2.5: Osteoporotic Range Electronically signed by: Kelvin Paniagua MD (01/10/2021 11:45 AM) [id number]
== END ==
LOC: KCIC DEXA 09:34
PROVIDERS: ATTEND Physician Assistant
DX: Z13.820 Encounter for screening for osteoporosis (principal); C50.211 Malignant neoplasm of upper-inner quadrant of right female breast; Z78.0 Asymptomatic menopausal state
CPT/HCPCS: 77080

== ENCOUNTER → 2021-03-11 | Outpatient (CLI) | payer OTHER ==
[2021-03-11 11:25] LABS: BASO % 1 % (0-3); EOS # 0.1 x10^3/uL (0.0-0.7); EOS % 2 % (0-3); HEMATOCRIT 31.1 % (36.0-47.0); HEMOGLOBIN 10.2 g/dL (12.0-15.5); LYMPH # 0.8 x10^3/uL (1.0-4.8); LYMPH % 22 % (24-48); MEAN CORPUSCULAR HEMOGLOBIN 32 pg (25-35); MEAN CORPUSCULAR HGB CONC 33 g/dL (31-37); MEAN CORPUSCULAR VOLUME 96 fL (79-100); MONO # 0.2 x10^3/uL (0.0-1.1); MONO % 4 % (0-9); NEUT # 2.8 x10^3/uL (1.8-7.7); NEUT % 72 % (31-73); PLATELET COUNT 175 x10^3/uL (140-400); RED BLOOD COUNT 3.24 x10^6/uL (3.50-5.40); RED CELL DISTRIBUTION WIDTH 16.2 % (11.5-14.5); WHITE BLOOD COUNT 3.9 x10^3/uL (4.0-11.0)
[2021-03-11 12:50] LABS: ALBUMIN 3.2 g/dL (3.4-5.0); ALBUMIN/GLOBULIN RATIO 0.7 (1.0-1.7); CALCIUM 10.1 mg/dL (8.5-10.1); CREATININE 10.3 mg/dL (0.6-1.0); GFR 4.6; TOTAL BILIRUBIN 0.3 mg/dL (0.2-1.0); TOTAL PROTEIN 7.7 g/dL (6.4-8.2)
[2021-03-11 13:00] LABS: POTASSIUM 6.3 mmol/L (3.5-5.1)
[2021-03-14 11:19] LABS: METHYLMALONIC ACID 636 nmol/L (0-378)
== END ==
LOC: ONCLAB 10:58
PROVIDERS: ATTEND Internal Medicine Hematology & Oncology
DX: C50.211 Malignant neoplasm of upper-inner quadrant of right female breast (principal)
CPT/HCPCS: 36415; 80053; 82607; 82746; 83540; 83550; 83921; 85025

== ENCOUNTER → 2021-03-18 | Outpatient (CLI) | payer OTHER ==
[2021-03-18 12:36] LABS: CALCIUM 9.6 mg/dL (8.5-10.1); CREATININE 5.6 mg/dL (0.6-1.0); GFR 9.3; POTASSIUM 3.8 mmol/L (3.5-5.1)
== END ==
LOC: ONCLAB 11:47
PROVIDERS: ATTEND Internal Medicine Hematology & Oncology
DX: C50.211 Malignant neoplasm of upper-inner quadrant of right female breast (principal)
CPT/HCPCS: 36415; 80048

== ENCOUNTER → 2021-07-18 | Outpatient (CLI) | payer OTHER ==
[2021-07-18 11:25] LABS: BASO % 1 % (0-3); EOS # 0.1 x10^3/uL (0.0-0.7); EOS % 1 % (0-3); HEMATOCRIT 33.2 % (36.0-47.0); HEMOGLOBIN 10.8 g/dL (12.0-15.5); LYMPH # 0.6 x10^3/uL (1.0-4.8); LYMPH % 14 % (24-48); MEAN CORPUSCULAR HEMOGLOBIN 31 pg (25-35); MEAN CORPUSCULAR HGB CONC 33 g/dL (31-37); MEAN CORPUSCULAR VOLUME 96 fL (79-100); MONO # 0.2 x10^3/uL (0.0-1.1); MONO % 6 % (0-9); NEUT # 3.2 x10^3/uL (1.8-7.7); NEUT % 78 % (31-73); PLATELET COUNT 155 x10^3/uL (140-400); RED BLOOD COUNT 3.45 x10^6/uL (3.50-5.40); RED CELL DISTRIBUTION WIDTH 16.2 % (11.5-14.5); WHITE BLOOD COUNT 4.1 x10^3/uL (4.0-11.0)
[2021-07-26 10:10] LABS: METHYLMALONIC ACID 997 nmol/L (0-378)
== END ==
LOC: ONCLAB 10:46
PROVIDERS: ATTEND Physician Assistant
DX: C50.211 Malignant neoplasm of upper-inner quadrant of right female breast (principal)
CPT/HCPCS: 36415; 82607; 82728; 82746; 83540; 83550; 83921; 85025

== ENCOUNTER → 2021-08-28 | Outpatient (CLI) | payer OTHER ==
[~2021-08-28] MED LIST changes: +LIDOCAINE WITH 8.4% SOD BICARB 3 ML DISP.SYRIN. INJ ONE; +LIDOCAINE WITH 8.4% SOD BICARB 3 ML DISP.SYRIN. ONE
[2021-08-28 14:07] VITALS: BP 191/75
--- NOTE | 2021-08-28 16:24 | RAD ---
Procedure: US CHEST, US GUIDED BIOPSY, US ASPIRATION LRG JOINT Clinical Indication: History of breast cancer. Patient has a palpable abnormality along the mastectom y scar. Anesthesia: Local anesthesia only. Continuous cardiopulmonary monitoring was performed by independent qualified nursing personnel. Complications: None Ultrasound: Along the right breast scar is a 4.2 x 1.3 cm isoechoic focus with areas of hypoechogenic ity posteriorly. There is areas of posterior shadowing. Consent: The procedure was explained in its entirety to the patient or the patients designated repre sentative by a member of the treatment team, including a discussion of the risks, benefits and common ly accepted alternatives to the procedure, as well as the expected consequences of no therapy whatsoe buck. Discussion of the risks included, but was not limited to, those that are most frequent and those that are rare but possibly severe or life-threatening, as well as the possibility of unforeseen comp lications. All questions were answered and informed consent was obtained. Sterility: All elements of maximal sterile barrier technique including the use of a cap, mask, steril e gown, sterile gloves, large sterile sheet, appropriate hand hygiene, and 2% chlorhexidine for cutan eous antisepsis (or acceptable alternative antiseptic per current guidelines) were followed for this procedure. Patient was placed in the supine position. The right chest wall was prepped and draped in the appropr iate sterile fashion. A timeout was performed. The palpable abnormality was located with ultrasound and local lidocaine was applied. A eulalia tipped 17-gauge introducer needle was advanced into the ma sslike lesion. 3 core needle biopsies were obtained with an 18-gauge device. Samples were placed in f ormalin. [place] were removed and pressure was held to achieve hemostasis. A sterile dressing was finn jennifer over top. Patient tolerated the procedure. Impression: 1. Palpable abnormality along patient's mastectomy scar on the right corresponding to a mixed echogen icity 4.2 x 1.3 cm mass. 2. Ultrasound-guided core needle biopsy of right chest wall mass. Electronically signed by: Pepe Up (08/28/2021 4:22 PM) [id number]
--- NOTE | 2021-09-01 16:10 | PATHOLOGY ---
[facility] Accession Number: [id number] . 01 Material submitted: . chest - RT CHEST WALL MASS BX. Modifiers: right, wall . 01 Clinical history: . RIGHT CHEST WALL BIOPSY . 02 Diagnosis: Segments of fibroadipose tissue, right chest wall mass, biopsies: - Fat necrosis, with focal dystrophic calcification. . ([facility]:mm; 09/01/2021) [facility] 09/01/2021 1023 Local . 02 Comment: There is no evidence of malignancy. . ([facility]:mm; 09/01/2021) . 02 Electronically signed: . Rivera Fernandes MD, Pathologist NPI- [id number] . 01 Gross description: . The specimen is received in formalin, labeled "Green, Joaquina, right chest wall". Received are 3 needle cores of pale leyva tissue ranging in length from 1.2 to 1.5 cm by 0.1 cm in diameter. The specimen is submitted entirely in A1-A3. ([facility]; 08/28/2021) NRI/NRI 08/28/2021 1902 Local . 02 Pathologist provided ICD-10: I96 . 02 CPT . 307657 Specimen Comment: A courtesy copy of this report has been sent to [phone] Specimen Comment: [id number] Specimen Comment: Report sent to / DR HUYNH Performed at: 01 [facility] [address], [place] [id number] MD Porter Salinas MD Phone: [phone] Performed at: 02 [facility] [address] [place], [place] [id number] MD Rivera Fernandes MD Phone: [phone]
== END | disposition home or self-care (01) ==
LOC: US 12:27
PROVIDERS: ATTEND Surgery
DX: R22.2 Localized swelling, mass and lump, trunk (principal); E66.9 Obesity, unspecified; I13.2 Hypertensive heart and chronic kidney disease with heart failure and with stage 5 chronic kidney disease, or end stage renal disease; I50.9 Heart failure, unspecified; N18.6 End stage renal disease; M19.90 Unspecified osteoarthritis, unspecified site; F41.9 Anxiety disorder, unspecified; Z87.891 Personal history of nicotine dependence; Z85.3 Personal history of malignant neoplasm of breast; Z79.82 Long term (current) use of aspirin; Z79.899 Other long term (current) drug therapy; Z98.890 Other specified postprocedural states; Z72.89 Other problems related to lifestyle; Z88.0 Allergy status to penicillin; Z91.040 Latex allergy status; Z91.041 Radiographic dye allergy status; Z88.8 Allergy status to other drugs, medicaments and biological substances; Z99.2 Dependence on renal dialysis
CPT/HCPCS: 20206; 76604; 76942; J3490

== ENCOUNTER → 2021-12-11 | Outpatient (CLI) | payer OTHER ==
[2021-08-28 14:07] VITALS: BP 191/75
[~2021-12-11] MED LIST changes: -LIDOCAINE WITH 8.4% SOD BICARB 3 ML DISP.SYRIN. INJ ONE; -LIDOCAINE WITH 8.4% SOD BICARB 3 ML DISP.SYRIN. ONE
[2021-12-11 10:51] LABS: BASO % 0 % (0-3); EOS % 1 % (0-3); HEMATOCRIT 28.9 % (36.0-47.0); HEMOGLOBIN 9.5 g/dL (12.0-15.5); LYMPH # 0.5 x10^3/uL (1.0-4.8); LYMPH % 17 % (24-48); MEAN CORPUSCULAR HEMOGLOBIN 32 pg (25-35); MEAN CORPUSCULAR HGB CONC 33 g/dL (31-37); MEAN CORPUSCULAR VOLUME 98 fL (79-100); MONO # 0.2 x10^3/uL (0.0-1.1); MONO % 8 % (0-9); NEUT # 2.3 x10^3/uL (1.8-7.7); NEUT % 74 % (31-73); PLATELET COUNT 145 x10^3/uL (140-400); RED BLOOD COUNT 2.94 x10^6/uL (3.50-5.40); WHITE BLOOD COUNT 3.1 x10^3/uL (4.0-11.0)
[2021-12-11 10:54] LABS: CALCIUM 9.8 mg/dL (8.5-10.1); GFR 3.5
[2021-12-11 10:59] LABS: ALBUMIN 3.3 g/dL (3.4-5.0); ALBUMIN/GLOBULIN RATIO 0.8 (1.0-1.7); TOTAL BILIRUBIN 0.4 mg/dL (0.2-1.0); TOTAL PROTEIN 7.7 g/dL (6.4-8.2)
== END ==
LOC: ONCLAB 09:56
PROVIDERS: ATTEND Physician Assistant
DX: C50.211 Malignant neoplasm of upper-inner quadrant of right female breast (principal)
CPT/HCPCS: 36415; 80053; 83615; 85025